=== PATIENT | female | born 1975 | race Caucasian/White ===

== ENCOUNTER 2016-07-17 15:04 | Emergency (ER) | payer BC ==
[2016-07-17] MEDS ORDERED: LORazepam 2 MG/ML MDV IVPUSH ONE (15:12)
[2016-07-17] MEDS ORDERED: Sodium Chloride 0.9% 10 ML Syringe FLUSH PRN (15:13)
[2016-07-17] MEDS ORDERED: Sodium Chloride 0.9% 2.5 ML Syringe FLUSH PRN (15:13)
--- NOTE | 2016-07-17 15:14 | EDM.PDOC ---
ED HISTORY OF PRESENT ILLNESS - General Stated Complaint: SHORTNESS OF BREATH Time Seen by Provider: 07/17/16 15:06 Source of Information: Reports: Patient History Limitations: Reports: No limitations - History of Present Illness INITIAL COMMENTS - FREE TEXT/NARRATIVE: History of present illness: [] Patient has a history of high blood pressure parameter men several weeks ago. She felt palpitations today and her took her blood pressure and found it to be in the 190s over 100s. She started panicking became very anxious and came to the ER for evaluation. Review of systems: As per history of present illness and below otherwise all systems reviewed and negative. Past medical history: As per history of present illness and as reviewed below otherwise noncontributory. Surgical history: As per history of present illness and as reviewed below otherwise noncontributory. Social history: No reported history of drug or alcohol abuse. Family history: As per history of present illness and as reviewed below otherwise noncontributory. Physical exam: General: Well developed, well nourished in NAD HEENT: Atraumatic, normocephalic, pupils reactive, negative for conjunctival pallor or scleral icterus, mucous membranes moist, throat clear, neck supple, nontender, trachea midline. Lungs: Clear to auscultation, breath sounds equal bilaterally, chest nontender. Heart: S1S2, regular, negative for clicks, rubs, or JVD. Abdomen: Soft, nondistended, nontender. Negative for masses or hepatosplenomegaly. Negative for costovertebral tenderness. Pelvis: Stable nontender. 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: Deferred. Rectal: Deferred. Extremities: Atraumatic, negative for cords or calf pain. Neurovascular unremarkable. Neuro: Awake, alert, oriented. Cranial nerves II through XII unremarkable. Cerebellum unremarkable. Motor and sensory unremarkable throughout. Exam nonfocal. Diagnostics: [] Labs are normal. Patient does have an elevated WBC count but looking at past CBCs this is her normal. Therapeutics: [] Nitroglycerin, metoprolol Zofran for vomiting which started while she was in ED. Impression: []Uncontrolled hypertension Plan: [] Renewed her losartan, she is followed with her primary care physician for her medications. Definitive disposition and diagnosis as appropriate pending reevaluation and review of above. - Related Data Allergies/ADRs: Allergies Allergy/AdvReac Type Severity Reaction Status Date / Time metoclopramide [From Reglan] Allergy aggitation Verified 07/17/16 15:17 Home Meds: Home Meds Omeprazole 40 mg PO ONETIME 05/16/16 [History] DULoxetine [Cymbalta] 2 tab PO DAILY 06/21/16 [History] Losartan/Hydrochlorothiazide [Losartan-HCTZ 50-12.5 MG] 1 each PO DAILY #15 tablet 06/21/16 [Rx] Past Medical History - Past Surgical History Female Surgical History: Reports: Hysterectomy Social & Family History - Family History Family Medical History: Noncontributory - Tobacco Use Smoking Status *Q: Current Every Day Smoker Years of Tobacco use: 20 Packs/Tins Daily: 0.5 - Caffeine Use Caffeine Use: Reports: Coffee, Energy drinks - Recreational Drug Use Recreational Drug Use: No ED ROS GENERAL - Review of Systems Review Of Systems: See Below (See history of present illness) ED EXAM, GENERAL - Physical Exam Exam: See Below (See history of present illness) Course - Vital Signs Last Recorded V/S: Last Vital Signs Temp 36.7 C 07/17/16 17:01 Pulse 88 07/17/16 17:01 Resp 16 07/17/16 17:01 BP 160/98 H 07/17/16 17:01 Pulse Ox 97 07/17/16 17:01 - Orders/Labs/Meds Orders: Active Orders 24 hr Category Date Time Status Peripheral IV Insertion Adult [OM.PC] Stat Oth 07/17/16 15:13 Ordered Labs: Laboratory Tests 07/17/16 07/17/16 07/17/16 Range/Units 15:19 15:19 15:19 WBC 20.94 H (4.0-11.0) K/uL RBC 5.41 (4.30-5.90) M/uL Hgb 14.5 (12.0-16.0) g/dL Hct 44.8 (36.0-46.0) % MCV 82.8 (80.0-98.0) fL MCH 26.8 L (27.0-32.0) pg MCHC 32.4 (31.0-37.0) g/dL RDW Std Deviation 45.3 (28.0-62.0) fl RDW Coeff of Migdalia 15 (11.0-15.0) % Plt Count 421 H (150-400) K/uL MPV 9.60 (7.40-12.00) fL Add Manual Diff YES Neutrophils % (Manual) 69 (48.0-80.0) % Band Neutrophils % 2 % Lymphocytes % (Manual) 24 (16.0-40.0) % Monocytes % (Manual) 5 (0.0-15.0) % Nucleated RBC % 0.0 /100WBC Absolute Seg Neuts 14.4 Band Neutrophils # 0.4 Lymphocytes # (Manual) 5.0 Monocytes # (Manual) 1.0 Nucleated RBCs # 0 K/uL Sodium 143 (136-146) mmol/L Potassium 3.3 L (3.5-5.1) mmol/L Chloride 103 (98-110) mmol/L Carbon Dioxide 21 (21-31) mmol/L BUN 12 (6.0-23.0) mg/dL Creatinine 1.0 (0.6-1.5) mg/dL Est Cr Clr Drug Dosing TNP Estimated GFR (MDRD) > 60.0 ml/min Glucose 95 (60-110) mg/dL Calcium 9.9 (8.8-10.8) mg/dL Total Bilirubin 0.8 (0.1-1.5) mg/dL AST 26 (5-40) IU/L ALT 33 (8-54) IU/L Alkaline Phosphatase 81 (40-150) Troponin I < 0.10 (0.0-0.29) NG/ML Total Protein 8.8 H (6.0-8.0) g/dL Albumin 4.9 (3.5-5.0) g/dL Globulin 3.9 H (2.0-3.5) g/dL Albumin/Globulin Ratio 1.3 (1.3-2.8) Meds: Medications Discontinued Medications Generic Name Dose Route Start Last Admin Trade Name Freq PRN Reason Stop Dose Admin Lorazepam 1 mg 07/17/16 15:12 07/17/16 15:24 Ativan IVPUSH 07/17/16 15:13 1 mg ONETIME ONE Administration Metoprolol Succinate 25 mg 07/17/16 15:57 Toprol Xl PO 07/17/16 15:58 ONETIME ONE Metoprolol Tartrate 5 mg 07/17/16 16:30 07/17/16 16:35 Lopressor IVPUSH 07/17/16 16:41 5 mg Q5M JOAN Administration Nitroglycerin 0.4 mg 07/17/16 15:12 07/17/16 15:36 Nitrostat SL 07/17/16 15:23 0.4 mg Q5M PRN Administration Chest Pain Ondansetron HCl 4 mg 07/17/16 16:10 07/17/16 16:16 Zofran IVPUSH 07/17/16 16:11 4 mg ONETIME ONE Administration Sodium Chloride 10 ml 07/17/16 15:13 07/17/16 15:24 Saline Flush FLUSH 10 ml ASDIRECTED PRN Administration Keep Vein Open Sodium Chloride 2.5 ml 07/17/16 15:13 07/17/16 15:24 Saline Flush FLUSH 2.5 ml ASDIRECTED PRN Administration Keep Vein Open Departure - Departure Time of Disposition: 16:04 Disposition: Home, Self-Care 01 Condition: good Clinical Impression: Uncontrolled hypertension Instructions: Hypertension Referrals: PCP,None [Primary Care Provider] - Forms: ED Department Discharge Additional Instructions: The following information is given to patients seen in the emergency department who are being discharged to home. This information is to outline your options for follow-up care. We provide all patients seen in our emergency department with a follow-up referral. The need for follow-up, as well as the timing and circumstances, are variable depending upon the specifics of your emergency department visit. If you don't have a primary care physician on staff, we will provide you with a referral. We always advise you to contact your personal physician following an emergency department visit to inform them of the circumstance of the visit and for follow-up with them and/or the need for any referrals to a consulting specialist. The emergency department will also refer you to a specialist when appropriate. This referral assures that you have the opportunity for follow-up care with a specialist. All of these measure are taken in an effort to provide you with optimal care, which includes your follow-up. Under all circumstances we always encourage you to contact your private physician who remains a resource for coordinating your care. When calling for follow-up care, please make the office aware that this follow-up is from your recent emergency room visit. If for any reason you are refused follow-up, please contact the [facility] Emergency Department at and asked to speak to the emergency department charge nurse. Take losartan as directed Followup PMD [facility] [address] [place] [id number] - My Orders Last 24 Hours: My Active Orders 07/17/16 15:13 Peripheral IV Insertion Adult [OM.PC] Stat - Assessment/Plan Last 24 Hours: My Active Orders 07/17/16 15:13 Peripheral IV Insertion Adult [OM.PC] Stat
[2016-07-17] MEDS: Nitroglycerin 0.4 MG Tab.SL SL PRN ×3 (15:24→15:36)
[2016-07-17 15:48] LABS: CHLORIDE,CL 103 mmol/L (98-110); SODIUM,NA 143 mmol/L (136-146)
[2016-07-17] MEDS ORDERED: Metoprolol Succinate 25 MG Tab.ER PO ONE (15:57)
[2016-07-17] MEDS ORDERED: Ondansetron 4 MG/2 ML SDV IVPUSH ONE (16:10)
[2016-07-17] MEDS ORDERED: Metoprolol Tartrate 5 MG/5 ML SDV IVPUSH SCH (16:30)
[2016-07-17 17:12] VITALS: BP 160/98
== END 2016-07-17 17:11 | disposition home or self-care (01) ==
LOC: MW.ED 15:04
DX: I10 Essential (primary) hypertension (principal); F17.210 Nicotine dependence, cigarettes, uncomplicated; Z90.49 Acquired absence of other specified parts of digestive tract; Z79.899 Other long term (current) drug therapy; Z88.8 Allergy status to other drugs, medicaments and biological substances
CPT/HCPCS: 36415; 80053; 84484; 85025; 93005; 96374; 96375; 99285; A9270; J2060; J2405; 99284

== ENCOUNTER 2017-07-16 14:24 | Emergency (ER) | payer BC ==
[2017-07-16 14:52] VITALS: BP 130/60
--- NOTE | 2017-07-16 16:49 | EDM.PDOC ---
ED HPI GENERAL MEDICAL PROBLEM - General Chief Complaint: Lower Extremity Injury/Pain Stated Complaint: RT KNEE HURTS Time Seen by Provider: 07/16/17 14:44 Source of Information: Reports: Patient History Limitations: Reports: No Limitations - History of Present Illness INITIAL COMMENTS - FREE TEXT/NARRATIVE: History of present illness: []Patient fell from a standing position 5 days ago and has had right knee pain underneath her patella. Patient has been ambulatory with pain. She has developed marked leg swelling with redness and pain. Patient denies any fevers, chest pain or shortness of breath and has no history of blood clots in the past. Review of systems: As per history of present illness and below otherwise all systems reviewed and negative. Past medical history: As per history of present illness and as reviewed below otherwise noncontributory. Surgical history: As per history of present illness and as reviewed below otherwise noncontributory. Social history: No reported history of drug or alcohol abuse. Family history: As per history of present illness and as reviewed below otherwise noncontributory. Physical exam: General: Well developed, well nourished in NAD HEENT: Atraumatic, normocephalic, pupils reactive, negative for conjunctival pallor or scleral icterus, mucous membranes moist, throat clear, neck supple, nontender, trachea midline. Lungs: Clear to auscultation, breath sounds equal bilaterally, chest nontender. Heart: S1S2, regular, negative for clicks, rubs, or JVD. Abdomen: Soft, nondistended, nontender. Negative for masses or hepatosplenomegaly. Negative for costovertebral tenderness. Pelvis: Stable nontender. 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: Deferred. Rectal: Deferred. Extremities: Right lower extremity no obvious knee effusion no external signs of trauma she is tender to palpation around the joint line her leg is markedly edematous and a erythematous compared to the left leg pulses are palpable, Neurovascular unremarkable. Neuro: Awake, alert, oriented. Cranial nerves II through XII unremarkable. Cerebellum unremarkable. Motor and sensory unremarkable throughout. Exam nonfocal. Diagnostics: []X-ray of her right knee shows small cortical tibial plateau lucency and suggestive of a fracture and ultrasound negative for DVT Therapeutics: []Knee immobilizer, patient declined pain meds in the ED Impression: []Right nondisplaced small tibial plateau fracture Plan: []Knee immobilizer, elevate leg as much as possible above the level of heart, ice to knee tramadol for pain follow-up with Dr. Lemon next available appointment Definitive disposition and diagnosis as appropriate pending reevaluation and review of above. right lower leg Pain Score (Numeric/FACES): 7 - Related Data Allergies Allergy/AdvReac Type Severity Reaction Status Date / Time metoclopramide [From Reglan] Allergy aggitation Verified 07/17/16 15:17 Home Meds: Home Meds Omeprazole 40 mg PO ONETIME 05/16/16 [History] DULoxetine [Cymbalta] 2 tab PO DAILY 06/21/16 [History] Losartan/Hydrochlorothiazide [Losartan-HCTZ 50-12.5 MG] 1 each PO DAILY #15 tablet 06/21/16 [Rx] traMADol HCl [Tramadol HCl] 50 mg PO Q6H PRN #16 tablet 07/16/17 [Rx] Past Medical History Cardiovascular History: Reports: Hypertension Gastrointestinal History: Reports: GERD Musculoskeletal History: Reports: Back Pain, Chronic Psychiatric History: Reports: Anxiety, Depression - Past Surgical History Cardiovascular Surgical History: Reports: None GI Surgical History: Reports: None Female Surgical History: Reports: Hysterectomy Social & Family History - Family History Family Medical History: Noncontributory - Tobacco Use Smoking Status *Q: Current Every Day Smoker Years of Tobacco use: 25 Packs/Tins Daily: 0.3 - Caffeine Use Caffeine Use: Reports: None Caffeine Use Comment: 2-3 drinks.day - Recreational Drug Use Recreational Drug Use: No Review of Systems - Review of Systems Review Of Systems: See Below (See history of present illness) ED EXAM, GENERAL - Physical Exam Exam: See Below (See history of present illness) Course - Vital Signs Last Recorded V/S: Last Vital Signs Temp 97.6 F 07/16/17 14:49 Pulse 100 07/16/17 14:49 Resp 16 07/16/17 14:49 BP 130/60 07/16/17 14:49 Pulse Ox 96 07/16/17 14:49 - Orders/Labs/Meds Orders: Active Orders 24 hr Category Date Time Status Knee 3V Rt [CR] Stat Exams 07/16/17 15:41 Taken Venous Doppler Lwr Ext Rt [US] Stat Exams 07/16/17 15:42 Taken Departure - Departure Time of Disposition: 16:49 Disposition: Home, Self-Care 01 Condition: Good Clinical Impression: Tibial plateau fracture, right Qualifiers: Encounter type: initial encounter Fracture type: closed Qualified Code(s): S82.141A - Displaced bicondylar fracture of right tibia, initial encounter for closed fracture - Discharge Information Prescriptions: traMADol HCl [Tramadol HCl] 50 mg PO Q6H PRN #16 tablet PRN Reason: Pain Referrals: Filemon Rios MD [Primary Care Provider] - Radha Lemon MD [Physician] - (Next available appointment) Forms: ED Department Discharge Additional Instructions: The following information is given to patients seen in the emergency department who are being discharged to home. This information is to outline your options for follow-up care. We provide all patients seen in our emergency department with a follow-up referral. The need for follow-up, as well as the timing and circumstances, are variable depending upon the specifics of your emergency department visit. If you don't have a primary care physician on staff, we will provide you with a referral. We always advise you to contact your personal physician following an emergency department visit to inform them of the circumstance of the visit and for follow-up with them and/or the need for any referrals to a consulting specialist. The emergency department will also refer you to a specialist when appropriate. This referral assures that you have the opportunity for follow-up care with a specialist. All of these measure are taken in an effort to provide you with optimal care, which includes your follow-up. Under all circumstances we always encourage you to contact your private physician who remains a resource for coordinating your care. When calling for follow-up care, please make the office aware that this follow-up is from your recent emergency room visit. If for any reason you are refused follow-up, please contact the [facility] Emergency Department at and asked to speak to the emergency department charge nurse. Ice, elevate above the level of your heart, Motrin for pain. Crutches for walking where immobilizer. Follow-up with Dr. Lemon next available appointment. - My Orders Last 24 Hours: My Active Orders 07/16/17 15:41 Knee 3V Rt [CR] Stat 07/16/17 15:42 Venous Doppler Lwr Ext Rt [US] Stat - Assessment/Plan Last 24 Hours: My Active Orders 07/16/17 15:41 Knee 3V Rt [CR] Stat 07/16/17 15:42 Venous Doppler Lwr Ext Rt [US] Stat
--- NOTE | 2017-07-17 16:05 | CR ---
EXAM DATE: 07/16/17 PATIENT'S AGE: 41 Patient: EASTON ARREGUIN Facility: [place], [place] Site . Site : 1975 Study: XRay Knee Right [id number]/11/2018 3:58:14 PM Ordering Physician: Walker Hanna Final Report: TECHNIQUE: Three views of the right knee. INDICATION: Fell 1 week ago. FINDINGS: Subtle cortical lucency in the lateral tibial plateau on the AP view may be a nondisplaced tibial plateau fracture. There is also a 1 year lucency in the patella seen on the patellar view. If indicated, CT could be performed for further evaluation of these findings. Dictated by Ari Varela MD @ Jul 16 2017 4:19PM (Electronic Signature) Report Signed by Proxy. MALCOM
--- NOTE | 2017-07-17 16:08 | US ---
EXAM DATE: 07/16/17 PATIENT'S AGE: 41 Patient: EASTON ARREGUIN Facility: [place], [place] Site . Site : 1975 Study: US Extremity Right [id number]/11/2018 4:21:46 PM Ordering Physician: Walker Hanna Final Report: INDICATION: Right calf swelling. TECHNIQUE: Ultrasound venous duplex lower right extremity. Compression venous exam was performed using norman-scale, color Doppler, and spectral Doppler imaging. COMPARISON: FINDINGS: Sonographic imaging demonstrates the right common femoral, deep femoral, superficial femoral, popliteal, posterior tibial and greater saphenous veins to be fully compressible with normal color Doppler blood flow. IMPRESSION: No DVT within the right lower extremity. Dictated by Nawaf Desai MD @ 07/16/2017 4:33:35 PM Dictated by: Nawaf Desai MD @ 07/16/2017 16:33:40 (Electronic Signature) Report Signed by Proxy. MALCOM
== END 2017-07-16 17:04 | disposition home or self-care (01) ==
LOC: MW.ED 14:24
DX: S82.144A Nondisplaced bicondylar fracture of right tibia, initial encounter for closed fracture (principal); K21.9 Gastro-esophageal reflux disease without esophagitis; I10 Essential (primary) hypertension; F32.9 Major depressive disorder, single episode, unspecified; F17.210 Nicotine dependence, cigarettes, uncomplicated; Z79.899 Other long term (current) drug therapy; Z88.8 Allergy status to other drugs, medicaments and biological substances; W19.XXXA Unspecified fall, initial encounter
CPT/HCPCS: 73562-26-RT; 73562-RT; 93971-26-RT; 93971-RT; 99283; 99284-25

== ENCOUNTER 2017-12-25 08:37 | Day surgery (SDC) | payer BC ==
[~2017-12-25 08:37] MED LIST: Lactated Ringers 1,000 ML IV SCH
[2017-12-25] MEDS ORDERED: Lidocaine 2% 5 ML SDV ONE (08:53)
[2017-12-25] MEDS ORDERED: Midazolam 1 MG/ML 2 ML SDV ONE (08:53)
[2017-12-25] MEDS ORDERED: Propofol 200 MG/20 ML SDV ONE ×3 (08:53→09:27)
--- NOTE | 2017-12-25 08:59 | PCM.PREANE ---
Preanesthetic Assessment - Procedure Proposed Procedure: EGD - Anesthesia/Transfusion/Family Hx Anesthesia History: Prior Anesthesia Without Reaction Family History of Anesthesia Reaction: No Transfusion History: Prior Transfusion Without Reaction Intubation History: Unknown - Review of Systems General: Other (Obesity) Pulmonary: Other (smoker) Cardiovascular: Other (HTN) Gastrointestinal: Nausea, Other (GERD) Neurological: No Symptoms Other: Reports: None - Physical Assessment NPO Status Date: 12/24/17 NPO Status Time: 22:00 Height: 4 ft 11 in Weight: 244 lb ASA Class: 3 Mental Status: Alert & Oriented x3 Airway Class: Mallampati = 2 Dentition: Reports: Broken Tooth/Teeth (chipped frontal uppers) Thyro-Mental Finger Breadths: 3 Mouth Opening Finger Breadths: 3 ROM/Head Extension: Limited/Partial Lungs: Clear to Auscultation Cardiovascular: Regular Rate, Regular Rhythm, No Murmurs Other: bilateral nares rings - Allergies Allergies/Adverse Reactions: Allergies Allergy/AdvReac Type Severity Reaction Status Date / Time metoclopramide [From Reglan] Allergy aggitation Verified 07/17/16 15:17 - Blood Blood Available: No Product(s) Available: None - Anesthesia Plan Pre-Op Medication Ordered: None - Acknowledgements Anesthesia Type Planned: MAC Pt an Appropriate Candidate for the Planned Anesthesia: Yes Alternatives and Risks of Anesthesia Discussed w Pt/Guardian: Yes Pt/Guardian Understands and Agrees with Anesthesia Plan: Yes PreAnesthesia Questionnaire HEENT History: Reports: Other (See Below) Other HEENT History: wears glasses Cardiovascular History: Reports: Hypertension Gastrointestinal History: Reports: GERD, Other (See Below) Other Gastrointestinal History: hx diverticulitis 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 History: Reports: None 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 History: Musculoskeletal History: Reports: Fracture Neurological History: Reports: None Psychiatric History: Reports: Anxiety, Depression Endocrine/Metabolic History: Reports: Obesity/BMI 30+ Hematologic History: Reports: Blood Transfusion(s) Immunologic History: Reports: None Oncologic (Cancer) History: Reports: None Dermatologic History: Reports: None - Past Surgical History Head Surgeries/Procedures: Reports: None GI Surgical History: Reports: Colonoscopy, EGD Female Surgical History: Reports: Hysterectomy - SUBSTANCE USE Smoking Status *Q: Light Tobacco Smoker Tobacco Use Within Last Twelve Months: Cigarettes Recreational Drug Use History: No - HOME MEDS Home Medications: Home Meds Omeprazole 40 mg PO DAILY 05/16/16 [History] DULoxetine [Cymbalta] 60 mg PO DAILY 06/21/16 [History] Cholecalciferol (Vitamin D3) [Vitamin D3] 1,000 units PO DAILY 12/20/17 [History ] Cyanocobalamin (Vitamin B12) [Vitamin B12] 500 mcg PO DAILY 12/20/17 [History] Losartan/Hydrochlorothiazide [Losartan-HCTZ 100-12.5 MG] 1 tab PO DAILY [History] Multivitamin [Multivitamins] 1 tab PO DAILY 12/20/17 [History] Phentermine HCl 37.5 mg PO DAILY 12/20/17 [History] Vitamin E 400 units PO DAILY 12/20/17 [History] Zolpidem Tartrate 5 mg PO BEDTIME 12/20/17 [History] buPROPion HCl [Wellbutrin Xl] 300 mg PO DAILY 12/20/17 [History] - CURRENT (IN HOUSE) MEDS Current Meds: Current Medications Lactated Ringer's (Ringers, Lactated) 1,000 mls @ 125 mls/hr IV ASDIRECTED JOAN Discontinued Medications Lidocaine (Xylocaine-Mpf 2%) Confirm Administered Dose 10 ml .ROUTE .STK-MED ONE Stop: 12/25/17 08:54 Midazolam HCl (Versed 1 Mg/Ml) Confirm Administered Dose 2 mg .ROUTE .STK-MED ONE Stop: 12/25/17 08:54 Propofol (Diprivan 20 Ml) Confirm Administered Dose 400 mg .ROUTE .STK-MED ONE Stop: 12/25/17 08:54
[2017-12-25] MEDS ORDERED: Sodium Chloride 0.9% 10 ML Syringe FLUSH PRN (09:39)
[2017-12-25] MEDS ORDERED: Ondansetron 4 MG/2 ML SDV IVPUSH PRN (09:39)
[2017-12-25] MEDS ORDERED: Sodium Chloride 0.9% 2.5 ML Syringe FLUSH PRN (09:39)
--- NOTE | 2017-12-25 09:42 | PCM.OPNOTE ---
- General Post-Op/Procedure Note Date of Surgery/Procedure: 12/25/17 Operative Procedure(s): Esophagogastroduodenoscopy with biopsy Pre Op Diagnosis: Abdominal pain with heartburn. Post-Op Diagnosis: Duodenal diverticulum. Moderate acute and chronic gastritis. Hiatal hernia. Anesthesia Technique: MAC (ASA III) Primary Surgeon: Quincy Lindsay Student Teacher: Lizandro Coombs Condition: Good Free Text/Narrative:: DICTATION [id number] CPT CODE 89553
--- NOTE | 2017-12-25 10:03 | PCM.POSTAN ---
POST ANESTHESIA ASSESSMENT - MENTAL STATUS Mental Status: Alert, Oriented - RESPIRATORY Respiratory Status: Respiratory Rate WNL, Airway Patent, O2 Saturation Stable - CARDIOVASCULAR CV Status: Pulse Rate WNL, Blood Pressure Stable - GASTROINTESTINAL GI Status: No Symptoms - POST OP HYDRATION Hydration Status: Adequate & Stable
[2017-12-25 10:17] VITALS: BP 98/54
--- NOTE | 2017-12-25 10:45 | PCM48HPAN ---
Post Anesthesia Note - EVALUATION WITHIN 48HRS OF ANESTHETIC Vital Signs in Normal Range: Yes Patient Participated in Evaluation: Yes Respiratory Function Stable: Yes Airway Patent: Yes Cardiovascular Function Stable: Yes Hydration Status Stable: Yes Pain Control Satisfactory: Yes Nausea and Vomiting Control Satisfactory: Yes Mental Status Recovered: Yes Resp Rate: 12
--- NOTE | 2017-12-25 12:54 | OR ---
SURGEON: Quincy Lindsay M.D. DATE OF PROCEDURE: 12/25/2017 OPERATION PERFORMED: Esophagogastroduodenoscopy with biopsy. PAPER FEEDER: Dr. Omalley. ANESTHESIA: MAC. ASA CLASSIFICATION: III. PREOPERATIVE DIAGNOSIS: Progressive abdominal pain with heartburn. POSTOPERATIVE DIAGNOSES: 1. Moderate acute and chronic gastritis. 2. Duodenal diverticulum. 3. Hiatal hernia. DESCRIPTION OF PROCEDURE: The patient was taken to the endoscopy room and positioned on the endoscopy table in the supine position. Time-out was called for appropriate identification of patient and procedure. Monitored anesthesia care was provided. The bite block was placed between the patient's teeth. The gastroscope was inserted through the bite block into the mouth and advanced with minimal difficulty through the esophagus and stomach into the duodenum. The duodenal diverticulum could be identified and photographs were obtained. The distal stomach does show [id number] gastritis. Antral biopsies were obtained to look for the presence of Helicobacter pylori. The gastroscope was retroflexed to visualize the proximal stomach. No mid or proximal lesions were identified. The gastroscope was then straightened and slowly withdrawn. Hiatal hernia had been noted in a retroflexed position, was again noted in a forward viewing fashion. The esophagus demonstrated good contractility. No mid or proximal lesions were identified. The vocal cords were visualized as the scope was withdrawn and noted to move symmetrically. The gastroscope was then removed with the patient having tolerated the procedure well. She was taken to recovery room in stable condition. JJ / JACIEL /[id number]
== END 2017-12-25 10:45 | disposition home or self-care (01) ==
LOC: MW.SDS 08:37
PROVIDERS: ATTEND Surgery
DX: K29.50 Unspecified chronic gastritis without bleeding (principal); K44.9 Diaphragmatic hernia without obstruction or gangrene; K57.10 Diverticulosis of small intestine without perforation or abscess without bleeding; J30.9 Allergic rhinitis, unspecified; K21.9 Gastro-esophageal reflux disease without esophagitis; I10 Essential (primary) hypertension; G47.00 Insomnia, unspecified; E66.01 Morbid (severe) obesity due to excess calories; Z68.42 Body mass index [BMI] 45.0-49.9, adult; F17.210 Nicotine dependence, cigarettes, uncomplicated; F41.9 Anxiety disorder, unspecified; F32.9 Major depressive disorder, single episode, unspecified; Z79.899 Other long term (current) drug therapy
CPT/HCPCS: 43239; 88305; 88312; J2250; J2704; J7120; 00731

== ENCOUNTER 2018-06-01 18:15 | Emergency (ER) | payer BC ==
[2018-06-01] MEDS ORDERED: Ketorolac 30 MG/ML SDV IVPUSH ONE (18:24)
[2018-06-01] MEDS ORDERED: Sodium Chloride 0.9% 1,000 ML IV ONE (18:24)
[2018-06-01 18:25] VITALS: BP 136/87
--- NOTE | 2018-06-01 18:35 | EDM.PDOC ---
ED HPI GENERAL MEDICAL PROBLEM - General Chief Complaint: Abdominal Pain Stated Complaint: CHEST PAIN Time Seen by Provider: 06/01/18 18:20 Source of Information: Reports: Patient History Limitations: Reports: No Limitations - History of Present Illness INITIAL COMMENTS - FREE TEXT/NARRATIVE: HISTORY AND PHYSICAL: History of present illness: Patient is a 42-year-old female who comes to the emergency room with complaints of epigastric and right upper quadrant pain. She states she has a history of gallstones and reportedly was scheduled to have her gallbladder removed but due to family illness had to cancel. She states she has had this epigastric pain over the past 3-4 days. Today the pain was so severe she called ambulance for assistance. She has had nausea with a few episodes of vomiting. Has had loose stools described as "mucousy", but no blood in her stools. EMS did give her Zofran and fentanyl in route. She denies any fever, chills, chest pain, shortness of breath or cough. Denies any constipation or dysuria. Review of systems: As per history of present illness and below otherwise all systems reviewed and negative. Past medical history: As per history of present illness and as reviewed below otherwise noncontributory. Surgical history: As per history of present illness and as reviewed below otherwise noncontributory. Social history: See social history for further information Family history: As per history of present illness and as reviewed below otherwise noncontributory. Physical exam: General: Well-developed and well-nourished 42-year-old female. Alert and oriented. Nontoxic appearing and in no acute distress. HEENT: Atraumatic, normocephalic, pupils equal and reactive bilaterally, negative for conjunctival pallor or scleral icterus, mucous membranes moist, TMs normal bilaterally, throat clear, neck supple, nontender, trachea midline. No drooling or trismus noted. No meningeal signs. No hot potato voice noted. Lungs: Clear to auscultation, breath sounds equal bilaterally, chest nontender. Heart: S1S2, regular rate and rhythm without overt murmur Abdomen: Soft, obese, epigastric tenderness and right upper quadrant tenderness which she states does radiate into her right flank mid back area Negative for masses or hepatosplenomegaly. Negative for costovertebral tenderness. Pelvis: Stable nontender. 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: Deferred. Rectal: Deferred. Skin: Intact, warm, dry. No lesions or rashes noted. Extremities: Atraumatic, moves all extremities per self, negative for cords or calf pain. Neurovascular unremarkable. Neuro: Awake, alert, oriented. Cranial nerves II through XII unremarkable. Cerebellum unremarkable. Motor and sensory unremarkable throughout. Exam nonfocal. Notes: EKG shows normal sinus rhythm with a rate of 87, no acute findings. Vital signs are stable. Patient signed out AGAINST MEDICAL ADVICE stating that she needed to return home to take care of her mother. She is aware of the risks of leaving without knowing the results on her ultrasound report. Vital signs are stable. She was encouraged to return if symptoms worsen or new symptoms develop. Diagnostics: CBC, CMP, UA, amylase, lipase, h.pylori, abdominal ultrasound Therapeutics: IV fluid, Toradol Prescription: None Impression: AGAINST MEDICAL ADVICE Abdominal Pain Plan: Patient left AGAINST MEDICAL ADVICE Definitive disposition and diagnosis as appropriate pending reevaluation and review of above. Duration: Day(s): Location: Reports: Abdomen Upper Mid-Anterior Abdominal Pain Score (Numeric/FACES): 8 - Related Data Allergies Allergy/AdvReac Type Severity Reaction Status Date / Time metoclopramide [From Reglan] Allergy aggitation Verified 06/01/18 18:21 Home Meds: Home Meds Omeprazole 40 mg PO DAILY 05/16/16 [History] DULoxetine [Cymbalta] 60 mg PO DAILY 06/21/16 [History] Cholecalciferol (Vitamin D3) [Vitamin D3] 1,000 units PO DAILY 12/20/17 [History ] Cyanocobalamin (Vitamin B12) [Vitamin B12] 500 mcg PO DAILY 12/20/17 [History] Losartan/Hydrochlorothiazide [Losartan-HCTZ 100-12.5 MG] 1 tab PO DAILY [History] Multivitamin [Multivitamins] 1 tab PO DAILY 12/20/17 [History] Vitamin E 400 units PO DAILY 12/20/17 [History] buPROPion HCl [Wellbutrin Xl] 300 mg PO DAILY 12/20/17 [History] Ciprofloxacin HCl [Cipro] 500 mg PO BID 4 Days #8 tablet 03/02/18 [Rx] Ondansetron [Zofran ODT] 4 mg PO Q6H PRN #8 tab.dis 03/17/18 [Rx] Past Medical History HEENT History: Reports: Other (See Below) Other HEENT History: wears glasses Cardiovascular History: Reports: Hypertension Respiratory History: Reports: None Gastrointestinal History: Reports: GERD, Other (See Below) Other Gastrointestinal History: hx diverticulitis 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: Musculoskeletal History: Reports: Fracture Neurological History: Reports: None Psychiatric History: Reports: Anxiety, Depression Endocrine/Metabolic History: Reports: Obesity/BMI 30+ Hematologic History: Reports: Blood Transfusion(s) Immunologic History: Reports: None Oncologic (Cancer) History: Reports: None Dermatologic History: Reports: None Other Dermatologic History: acne - Infectious Disease History Infectious Disease History: Reports: None - Past Surgical History Head Surgeries/Procedures: Reports: None Cardiovascular Surgical History: Reports: None GI Surgical History: Reports: Colonoscopy, EGD Female Surgical History: Reports: Hysterectomy Musculoskeletal Surgical History: Reports: None Social & Family History - Family History Family Medical History: Noncontributory - Tobacco Use Smoking Status *Q: Current Every Day Smoker Years of Tobacco use: 20 Packs/Tins Daily: 0.1 - Caffeine Use Caffeine Use: Reports: Coffee Caffeine Use Comment: 2-3 drinks.day - Recreational Drug Use Recreational Drug Use: No ED ROS GENERAL - Review of Systems Review Of Systems: ROS reveals no pertinent complaints other than HPI. ED EXAM, GI/ABD - Physical Exam Exam: See Below (See dictation) Course - Vital Signs Last Recorded V/S: Last Vital Signs Temp 98.7 F 06/01/18 18:17 Pulse 99 06/01/18 18:17 Resp 16 06/01/18 18:17 BP 136/87 06/01/18 18:17 Pulse Ox 99 06/01/18 18:17 - Orders/Labs/Meds Orders: Active Orders 24 hr Category Date Time Status EKG Documentation Completion [RC] STAT Care 06/01/18 18:24 Active UA RFX ARNEL AND CULT IF INDIC [URIN] Stat Lab 06/01/18 18:24 Ordered Labs: Laboratory Tests 06/01/18 06/01/18 06/01/18 Range/Units 18:33 18:33 18:33 WBC 13.71 H (4.0-11.0) K/uL RBC 4.75 (4.30-5.90) M/uL Hgb 13.5 (12.0-16.0) g/dL Hct 40.7 (36.0-46.0) % MCV 85.7 (80.0-98.0) fL MCH 28.4 (27.0-32.0) pg MCHC 33.2 (31.0-37.0) g/dL RDW Std Deviation 45.2 (28.0-62.0) fl RDW Coeff of Migdalia 15 (11.0-15.0) % Plt Count 312 (150-400) K/uL MPV 9.40 (7.40-12.00) fL Neut % (Auto) 77.7 (48.0-80.0) % Lymph % (Auto) 18.1 (16.0-40.0) % [place] % (Auto) 3.4 (0.0-15.0) % Eos % (Auto) 0.6 (0.0-7.0) % Baso % (Auto) 0.2 (0.0-1.5) % Neut # (Auto) 10.7 H (1.4-5.7) K/uL Lymph # (Auto) 2.5 H (0.6-2.4) K/uL [place] # (Auto) 0.5 (0.0-0.8) K/uL Eos # (Auto) 0.1 (0.0-0.7) K/uL Baso # (Auto) 0.0 (0.0-0.1) K/uL Nucleated RBC % 0.0 /100WBC Nucleated RBCs # 0 K/uL Sodium 141 (136-145) mmol/L Potassium 3.6 (3.5-5.1) mmol/L Chloride 100 (98-107) mmol/L Carbon Dioxide 29.1 (21.0-32.0) mmol/L BUN 10 (7.0-18.0) mg/dL Creatinine 1.0 (0.6-1.0) mg/dL Est Cr Clr Drug Dosing 53.18 mL/min Estimated GFR (MDRD) > 60.0 ml/min Glucose 111 H (74-106) mg/dL Calcium 10.2 H (8.5-10.1) mg/dL Total Bilirubin 0.4 (0.2-1.0) mg/dL AST 17 (15-37) IU/L ALT 27 (14-63) IU/L Alkaline Phosphatase 88 (46-116) U/L Troponin I < 0.050 (0.000-0.056) ng/mL Total Protein 8.3 H (6.4-8.2) g/dL Albumin 3.9 (3.4-5.0) g/dL Globulin 4.4 H (2.6-4.0) g/dL Albumin/Globulin Ratio 0.9 (0.9-1.6) Amylase 141 H (25-115) U/L Lipase 171 (73-393) U/L H. pylori IgG Antibody NEGATIVE (NEG) Meds: Medications Discontinued Medications Generic Name Dose Route Start Last Admin Trade Name Freq PRN Reason Stop Dose Admin Sodium Chloride 1,000 mls @ 999 mls/hr 06/01/18 18:24 06/01/18 18:33 Normal Saline IV 06/01/18 19:24 999 mls/hr STAT ONE Administration Ketorolac Tromethamine 30 mg 06/01/18 18:24 06/01/18 18:32 Toradol IVPUSH 06/01/18 18:25 30 mg ONETIME ONE Administration Departure - Departure Time of Disposition: 20:59 Disposition: Against Medical Advice 07 Clinical Impression: Left against medical advice Abdominal pain Qualifiers: Abdominal location: left upper quadrant Qualified Code(s): R10.12 - Left upper quadrant pain - Discharge Information Referrals: Filemon Rios MD [Primary Care Provider] - Forms: ED Department Discharge - My Orders Last 24 Hours: My Active Orders 06/01/18 18:24 EKG Documentation Completion [RC] STAT UA RFX ARNEL AND CULT IF INDIC [URIN] Stat - Assessment/Plan Last 24 Hours: My Active Orders 06/01/18 18:24 EKG Documentation Completion [RC] STAT UA RFX ARNEL AND CULT IF INDIC [URIN] Stat
[2018-06-01 19:05] LABS: CHLORIDE,CL 100 mmol/L (98-107); SODIUM,NA 141 mmol/L (136-145)
--- NOTE | 2018-06-01 20:30 | US ---
INDICATION: RUQ PAIN LIMITED ABDOMEN ULTRASOUND Technique: Multiple sonographic images were performed over the right upper quadrant. Comparison: 02/27/2018 ultrasound. Findings: The gallbladder appears partially contracted. The gallbladder contains several shadowing echogenic foci consistent with gallstones. There was a positive sonographic Boswell`s sign according to the technologist. The gallbladder wall does not appear abnormally thickened and no pericholecystic fluid is seen. No intrahepatic biliary dilatation is seen but the common bile duct is mildly dilated, measuring 9-10 millimeters in diameter. No intraductal stones are identified. The visualized portions of the liver, pancreas, and right kidney are unremarkable except for diffusely increased liver echogenicity consistent with fatty infiltration. IMPRESSION: 1. Cholelithiasis. Positive sonographic Boswell`s sign without other sonographic evidence of cholecystitis. 2. Dilated common bile duct measuring 9-10 millimeters in diameter. 3. Fatty infiltration of the liver. DARLYN RONDON MD [facility] Dictated by Kyaw Rondon MD @ 06/01/2018 8:26:39 PM Dictated by: Kyaw Rondon MD @ 06/01/2018 20:29:34 (Electronically Signed)
== END 2018-06-01 20:10 | disposition left against medical advice (07) ==
LOC: MW.ED 18:15
DX: R10.12 Left upper quadrant pain (principal); R10.13 Epigastric pain; R10.11 Right upper quadrant pain; I10 Essential (primary) hypertension; K21.9 Gastro-esophageal reflux disease without esophagitis; F41.9 Anxiety disorder, unspecified; F32.9 Major depressive disorder, single episode, unspecified; F17.210 Nicotine dependence, cigarettes, uncomplicated; Z79.899 Other long term (current) drug therapy; Z53.21 Procedure and treatment not carried out due to patient leaving prior to being seen by health care provider
CPT/HCPCS: 36415; 76705; 80053; 82150; 83690; 84484; 85025; 86677; 93005; 96361; 96374; 99285; J1885; J7040

== ENCOUNTER 2018-06-04 22:25 | Emergency (ER) | payer BC ==
[2018-06-04] MEDS ORDERED: Ondansetron 4 MG/2 ML SDV IVPUSH ONE (22:33)
--- NOTE | 2018-06-04 22:41 | EDM.PDOC ---
ED HPI GENERAL MEDICAL PROBLEM - General Chief Complaint: Chest Pain Stated Complaint: CHEST IS HURTING Time Seen by Provider: 06/04/18 22:35 - History of Present Illness INITIAL COMMENTS - FREE TEXT/NARRATIVE: HISTORY AND PHYSICAL: History of present illness: Patient is a 42-year-old white female history of alcohol abuse who presents with a concern of epigastric discomfort after drinking tonight she states she did some shots of vodka. There's been no shortness of breath and no other complaints she does have a history of gallbladder disease and is in a process of securing follow-up for further evaluation and possible cholecystectomy in the future. Review of systems: As per history of present illness and below otherwise all systems reviewed and negative. Past medical history: As per history of present illness and as reviewed below otherwise noncontributory. Surgical history: As per history of present illness and as reviewed below otherwise noncontributory. Social history: No reported history of drug or alcohol abuse. Family history: As per history of present illness and as reviewed below otherwise noncontributory. Physical exam: HEENT: Atraumatic, normocephalic, pupils reactive, negative for conjunctival pallor or scleral icterus, mucous membranes moist, throat clear, neck supple, nontender, trachea midline. Lungs: Clear to auscultation, breath sounds equal bilaterally, chest nontender. Heart: S1S2, regular, negative for clicks, rubs, or JVD. Abdomen: Soft, nondistended, nontender. Negative for masses or hepatosplenomegaly. Negative for costovertebral tenderness. Pelvis: Stable nontender. 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: Deferred. Rectal: Deferred. Extremities: Atraumatic, negative for cords or calf pain. Neurovascular unremarkable. Neuro: Awake, alert, oriented. Cranial nerves II through XII unremarkable. Cerebellum unremarkable. Motor and sensory unremarkable throughout. Exam nonfocal. Diagnostics: CBC CMP and lipase troponin PT/INR chest x-ray EKG Therapeutics: IV O2 monitor Zofran 4 mg IV Impression: #1 epigastric abdominal pain #2 history of alcohol abuse #3 gastritis #4 history of biliary disease Definitive disposition and diagnosis as appropriate pending reevaluation and review of above. - Related Data Allergies Allergy/AdvReac Type Severity Reaction Status Date / Time metoclopramide [From Reglan] Allergy Agitation Verified 06/04/18 22:48 Home Meds: Home Meds Omeprazole 60 mg PO DAILY 05/16/16 [History] DULoxetine [Cymbalta] 60 mg PO DAILY 06/21/16 [History] Losartan/Hydrochlorothiazide [Losartan-HCTZ 100-12.5 MG] 1 tab PO DAILY [History] buPROPion HCl [Wellbutrin Xl] 300 mg PO DAILY 12/20/17 [History] Past Medical History HEENT History: Reports: Other (See Below) Other HEENT History: wears glasses Cardiovascular History: Reports: Hypertension Respiratory History: Reports: None Gastrointestinal History: Reports: GERD, Other (See Below) Other Gastrointestinal History: hx diverticulitis 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: Musculoskeletal History: Reports: Fracture Neurological History: Reports: None Psychiatric History: Reports: Anxiety, Depression Endocrine/Metabolic History: Reports: Obesity/BMI 30+ Hematologic History: Reports: Blood Transfusion(s) Immunologic History: Reports: None Oncologic (Cancer) History: Reports: None Dermatologic History: Reports: None Other Dermatologic History: acne - Infectious Disease History Infectious Disease History: Reports: None - Past Surgical History Head Surgeries/Procedures: Reports: None Cardiovascular Surgical History: Reports: None GI Surgical History: Reports: Colonoscopy, EGD Female Surgical History: Reports: Hysterectomy Musculoskeletal Surgical History: Reports: None Social & Family History - Family History Family Medical History: Noncontributory - Caffeine Use Caffeine Use: Reports: Coffee Caffeine Use Comment: 2-3 drinks.day ED ROS GENERAL - Review of Systems Review Of Systems: ROS reveals no pertinent complaints other than HPI. ED EXAM, GENERAL - Physical Exam Exam: See Below (See dictation) Course - Vital Signs Last Recorded V/S: Last Vital Signs Temp 36.1 C 06/04/18 22:25 Pulse 91 06/04/18 22:25 Resp 18 06/04/18 22:25 BP 164/91 H 06/04/18 22:25 Pulse Ox 95 06/04/18 22:25 - Orders/Labs/Meds Orders: Active Orders 24 hr Category Date Time Status EKG Documentation Completion [RC] STAT Care 06/04/18 22:33 Active UA RFX ARNEL AND CULT IF INDIC [URIN] Stat Lab 06/04/18 23:23 Ordered Sodium Chloride 0.9% [Saline Flush] Med 06/04/18 22:51 Active 10 ml FLUSH ASDIRECTED PRN Sodium Chloride 0.9% [Saline Flush] Med 06/04/18 22:51 Active 2.5 ml FLUSH ASDIRECTED PRN Nasogastric Orogastric Tube Insertion [OM.PC] Stat Oth 06/05/18 00:32 Ordered Saline Lock Insert [OM.PC] Stat Ot 06/04/18 22:51 Ordered Medication Orders Sodium Chloride (Saline Flush) 10 ml FLUSH ASDIRECTED PRN PRN Reason: Keep Vein Open Sodium Chloride (Saline Flush) 2.5 ml FLUSH ASDIRECTED PRN PRN Reason: Keep Vein Open Labs: Laboratory Tests 06/04/18 06/04/18 06/04/18 Range/Units 22:45 22:45 22:45 WBC 15.92 H (4.0-11.0) K/uL RBC 4.74 (4.30-5.90) M/uL Hgb 13.1 (12.0-16.0) g/dL Hct 40.4 (36.0-46.0) % MCV 85.2 (80.0-98.0) fL MCH 27.6 (27.0-32.0) pg MCHC 32.4 (31.0-37.0) g/dL RDW Std Deviation 44.6 (28.0-62.0) fl RDW Coeff of Migdalia 14 (11.0-15.0) % Plt Count 345 (150-400) K/uL MPV 9.50 (7.40-12.00) fL Add Manual Diff YES Neutrophils % (Manual) 68 (48.0-80.0) % Band Neutrophils % 3 % Lymphocytes % (Manual) 24 (16.0-40.0) % Monocytes % (Manual) 4 (0.0-15.0) % Eosinophils % (Manual) 1 (0.0-7.0) % Nucleated RBC % 0.0 /100WBC Absolute Seg Neuts 10.8 H (1.4-5.7) Band Neutrophils # 0.5 Lymphocytes # (Manual) 3.8 H (0.6-2.4) Monocytes # (Manual) 0.6 (0.0-0.8) Eosinophils # (Manual) 0.2 (0.0-0.7) Nucleated RBCs # 0 K/uL INR 0.99 Sodium 143 (136-145) mmol/L Potassium 3.3 L (3.5-5.1) mmol/L Chloride 101 (98-107) mmol/L Carbon Dioxide 27.8 (21.0-32.0) mmol/L BUN 11 (7.0-18.0) mg/dL Creatinine 1.0 (0.6-1.0) mg/dL Est Cr Clr Drug Dosing TNP Estimated GFR (MDRD) > 60.0 ml/min Glucose 118 H (74-106) mg/dL Calcium 10.1 (8.5-10.1) mg/dL Total Bilirubin 0.3 (0.2-1.0) mg/dL AST 14 L (15-37) IU/L ALT 26 (14-63) IU/L Alkaline Phosphatase 78 (46-116) U/L Troponin I < 0.050 (0.000-0.056) ng/mL Total Protein 7.9 (6.4-8.2) g/dL Albumin 3.8 (3.4-5.0) g/dL Globulin 4.1 H (2.6-4.0) g/dL Albumin/Globulin Ratio 0.9 (0.9-1.6) Lipase 164 (73-393) U/L Meds: Medications Generic Name Dose Route Start Last Admin Trade Name Harjeetq PRN Reason Stop Dose Admin Sodium Chloride 10 ml 06/04/18 22:51 Saline Flush FLUSH ASDIRECTED PRN Keep Vein Open Sodium Chloride 2.5 ml 06/04/18 22:51 Saline Flush FLUSH ASDIRECTED PRN Keep Vein Open Discontinued Medications Generic Name Dose Route Start Last Admin Trade Name Alexandrea PRN Reason Stop Dose Admin Benzocaine 1 each 06/05/18 00:17 06/05/18 00:30 Hurricaine One 20% MUCMEM 06/05/18 00:18 1 each ONETIME ONE Administration Al Hydroxide/Mg Hydroxide 15 0 ml 06/04/18 22:50 06/04/18 23:00 ml/ Lidocaine HCl 5 ml PO 06/04/18 22:51 20 each ONETIME ONE Administration Ondansetron HCl 4 mg 06/04/18 22:33 06/04/18 22:41 Zofran IVPUSH 06/04/18 22:34 4 mg ONETIME ONE Administration Pantoprazole Sodium 40 mg 06/04/18 22:50 06/04/18 23:01 Protonix Iv IVPUSH 06/04/18 22:51 40 mg NOW ONE Administration Departure - Departure Time of Disposition: 00:55 Disposition: Home, Self-Care 01 Condition: Good Clinical Impression: Cholelithiasis, Gastritis, Alcohol abuse - Discharge Information Instructions: Cholelithiasis, [id number] Referrals: Filemon Rios MD [Primary Care Provider] - Forms: ED Department Discharge Additional Instructions: The following information is given to patients seen in the emergency department who are being discharged to home. This information is to outline your options for follow-up care. We provide all patients seen in our emergency department with a follow-up referral. The need for follow-up, as well as the timing and circumstances, are variable depending upon the specifics of your emergency department visit. If you don't have a primary care physician on staff, we will provide you with a referral. We always advise you to contact your personal physician following an emergency department visit to inform them of the circumstance of the visit and for follow-up with them and/or the need for any referrals to a consulting specialist. The emergency department will also refer you to a specialist when appropriate. This referral assures that you have the opportunity for followup care with a specialist. All of these measure are taken in an effort to provide you with optimal care, which includes your followup. Under all circumstances we always encourage you to contact your private physician who remains a resource for coordinating your care. When calling for followup care, please make the office aware that this follow-up is from your recent emergency room visit. If for any reason you are refused follow-up, please contact the [facility] emergency department at and asked to speak to the emergency department charge nurse. Protonix as prescribed follow-up Gen. surgery as discussed stop drinking and return as needed as discussed[] - My Orders Last 24 Hours: My Active Orders 06/04/18 22:33 EKG Documentation Completion [RC] STAT 06/04/18 22:51 Sodium Chloride 0.9% [Saline Flush] 10 ml FLUSH ASDIRECTED PRN Sodium Chloride 0.9% [Saline Flush] 2.5 ml FLUSH ASDIRECTED PRN Saline Lock Insert [OM.PC] Stat 06/04/18 23:23 UA RFX ARNEL AND CULT IF INDIC [URIN] Stat 06/05/18 00:32 Nasogastric Orogastric Tube Insertion [OM.PC] Stat - Assessment/Plan Last 24 Hours: My Active Orders 06/04/18 22:33 EKG Documentation Completion [RC] STAT 06/04/18 22:51 Sodium Chloride 0.9% [Saline Flush] 10 ml FLUSH ASDIRECTED PRN Sodium Chloride 0.9% [Saline Flush] 2.5 ml FLUSH ASDIRECTED PRN Saline Lock Insert [OM.PC] Stat 06/04/18 23:23 UA RFX ARNEL AND CULT IF INDIC [URIN] Stat 06/05/18 00:32 Nasogastric Orogastric Tube Insertion [OM.PC] Stat
[2018-06-04] MEDS ORDERED: Pantoprazole 40 MG Vial IVPUSH ONE (22:50)
[2018-06-04] MEDS ORDERED: Alum Hydrox/Mag Hydrox/Simeth 15 ML, Lidocaine 2% 5 ML PO ONE ×2 (22:50)
[2018-06-04] MEDS ORDERED: Sodium Chloride 0.9% 2.5 ML Syringe FLUSH PRN (22:51)
[2018-06-04] MEDS ORDERED: Sodium Chloride 0.9% 10 ML Syringe FLUSH PRN (22:51)
--- NOTE | 2018-06-04 23:10 | CR ---
Indication: Chest pain. Vomiting Technique: Chest 1 view Comparison: 03/17/2018. Findings/Impression: Cardiovascular and mediastinum: Mildly decreased cardiac size compared to the prior. Lungs and pleural space: Lungs are clear. No sign of infiltrate or mass. No sign of pleural effusion. No definite pneumothorax seen. Bones and soft tissues: No significant change. Dictated by Rajat Taylor MD @ 06/04/2018 11:08:34 PM Dictated by: Rajat Taylor MD @ 06/04/2018 23:08:38 (Electronically Signed)
[2018-06-04 23:34] LABS: CHLORIDE,CL 101 mmol/L (98-107); SODIUM,NA 143 mmol/L (136-145)
[2018-06-05] MEDS ORDERED: Benzocaine 20% Topical Spray UD MUCMEM ONE (00:17)
--- NOTE | 2018-06-05 00:38 | US ---
INDICATION: Right upper quadrant abdomen pain TECHNIQUE: Ultrasound abdomen limited. Sonographic images of the right upper quadrant were obtained using norman-scale and color Doppler images. COMPARISON: Right upper quadrant ultrasound 06/01/2018 FINDINGS: Liver: Mildly increased echogenicity diffusely without focal lesion. No masses. No intrahepatic biliary dilatation. Gallbladder: Cholelithiasis filling the gallbladder lumen with contracted gallbladder. Borderline gallbladder wall thickness at 3 millimeters. Common bile duct: 3 mm. Pancreas: Partially obscured by bowel gas without discrete lesion. Right kidney: Normal in size. Normal echotexture and cortex. No masses, stones, or hydronephrosis. IMPRESSION: 1. Contracted gallbladder with cholelithiasis and borderline gallbladder wall thickening, fairly similar to the prior exam. 2. Normal diameter common duct, caliber of the common duct is significantly reduced compared to the study of 4 days prior. Dictated by August Lui MD @ Jun 05 2018 12:32AM Signed by Dr. August Lui @ Jun 05 2018 12:37AM
[2018-06-05 01:06] VITALS: BP 160/107
== END 2018-06-05 01:04 | disposition home or self-care (01) ==
LOC: MW.ED 22:25
DX: K29.70 Gastritis, unspecified, without bleeding (principal); K80.20 Calculus of gallbladder without cholecystitis without obstruction; F10.10 Alcohol abuse, uncomplicated; I10 Essential (primary) hypertension; K21.9 Gastro-esophageal reflux disease without esophagitis; F41.9 Anxiety disorder, unspecified; F32.9 Major depressive disorder, single episode, unspecified; Z88.8 Allergy status to other drugs, medicaments and biological substances; Z79.899 Other long term (current) drug therapy
CPT/HCPCS: 36415; 43753; 71045; 76705; 80053; 83690; 84484; 85025; 85610; 93005; 96374; 96375; 99285; A9270; C9113; J2405; 99283

== ENCOUNTER 2018-11-06 11:02 | Emergency (ER) | payer BC ==
[2018-11-06 11:26] VITALS: BP 136/92; PULSE 101
[2018-11-06] MEDS ORDERED: Sodium Chloride 0.9% 1,000 ML IV ONE (11:44)
[2018-11-06] MEDS ORDERED: fentaNYL 100 MCG/2 ML SDV IVPUSH ONE (11:44)
[2018-11-06] MEDS ORDERED: Ondansetron 4 MG/2 ML SDV IVPUSH ONE (11:54)
--- NOTE | 2018-11-06 11:54 | EDM.PDOC ---
ED HPI GENERAL MEDICAL PROBLEM - General Chief Complaint: Abdominal Pain Stated Complaint: gallbladder issues Time Seen by Provider: 11/06/18 11:16 Source of Information: Reports: Patient History Limitations: Reports: No Limitations - History of Present Illness INITIAL COMMENTS - FREE TEXT/NARRATIVE: Patient presents reporting gallbladder pain. Patient states that she had a full workup for her gallbladder, diagnosed with cholecystitis and was seen by a surgeon, Dr. Vigil, here. Due to her weight she was referred to Dr. Christophe Joy general surgery at [facility]. She had a cholecystectomy scheduled however ended up canceling her surgery due to personal reasons. Now she reports having a gallbladder attack. She has some nausea and vomiting but has been keeping down oral fluids. The pain is her typical gallbladder pain in the right upper quadrant and epigastric area. She has had some chills due to pain. RUQ Pain Score (Numeric/FACES): 10 - Related Data Allergies Allergy/AdvReac Type Severity Reaction Status Date / Time metoclopramide [From Reglan] Allergy Agitation Verified 11/06/18 11:23 Home Meds: Home Meds Omeprazole 60 mg PO DAILY 05/16/16 [History] DULoxetine [Cymbalta] 60 mg PO DAILY 06/21/16 [History] Losartan/Hydrochlorothiazide [Losartan-HCTZ 100-12.5 MG] 1 tab PO DAILY [History] buPROPion HCl [Wellbutrin Xl] 300 mg PO DAILY 12/20/17 [History] Past Medical History HEENT History: Reports: Other (See Below) Other HEENT History: wears glasses Cardiovascular History: Reports: Hypertension Respiratory History: Reports: None Gastrointestinal History: Reports: GERD, Other (See Below) Other Gastrointestinal History: hx diverticulitis 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 History: Reports: None [employer]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 Musculoskeletal History: Reports: Fracture Neurological History: Reports: None Psychiatric History: Reports: Anxiety, Depression Endocrine/Metabolic History: Reports: Obesity/BMI 30+ Hematologic History: Reports: Blood Transfusion(s) Immunologic History: Reports: None Oncologic (Cancer) History: Reports: None Dermatologic History: Reports: None Other Dermatologic History: acne - Infectious Disease History Infectious Disease History: Reports: None - Past Surgical History Head Surgeries/Procedures: Reports: None HEENT Surgical History: Reports: None Cardiovascular Surgical History: Reports: None Respiratory Surgical History: Reports: None GI Surgical History: Reports: Colonoscopy, EGD Female Surgical History: Reports: Hysterectomy Endocrine Surgical History: Reports: None Neurological Surgical History: Reports: None Musculoskeletal Surgical History: Reports: None Oncologic Surgical History: Reports: None Social & Family History - Family History Family Medical History: Noncontributory - Tobacco Use Smoking Status *Q: Current Every Day Smoker Years of Tobacco use: 25 Packs/Tins Daily: 0.2 - Caffeine Use Caffeine Use: Reports: Soda Caffeine Use Comment: 2-3 drinks.day - Recreational Drug Use Recreational Drug Use: Yes Recreational Drug Type: Reports: Marijuana/Hashish Recreational Drug Use Frequency: Socially ED ROS GENERAL - Review of Systems Review Of Systems: ROS reveals no pertinent complaints other than HPI. ED EXAM, GI/ABD - Physical Exam Exam: See Below General Appearance: Alert, No Apparent Distress Ears: Normal External Exam Nose: Normal Inspection Throat/Mouth: Normal Inspection Head: Atraumatic, Normocephalic Neck: Normal Inspection Respiratory/Chest: No Respiratory Distress, Lungs Clear Cardiovascular: Normal Peripheral Pulses, Regular Rate, Rhythm, No Murmur GI/Abdominal Exam: Soft, No Distention, Other (RUQ/epigastric tenderness) Extremities: Normal Inspection Neurological: Alert, Oriented Psychiatric: Normal Affect, Normal Mood Skin Exam: Warm, Dry, Intact Lymphatic: No Adenopathy Course - Vital Signs Last Recorded V/S: Last Vital Signs Temp 35.3 C 11/06/18 11:23 Pulse 101 H 11/06/18 11:23 Resp 18 11/06/18 11:23 BP 136/92 H 11/06/18 11:23 Pulse Ox 95 11/06/18 11:23 - Orders/Labs/Meds Meds: Medications Discontinued Medications Generic Name Dose Route Start Last Admin Trade Name Freq PRN Reason Stop Dose Admin Fentanyl 50 mcg 11/06/18 11:44 Sublimaze IVPUSH 11/06/18 11:45 ONETIME ONE Sodium Chloride 1,000 mls @ 999 mls/hr 11/06/18 11:44 Normal Saline IV 11/06/18 12:44 STAT ONE Ondansetron HCl 4 mg 11/06/18 11:54 Zofran IVPUSH 11/06/18 11:55 ONETIME ONE Departure - Departure Time of Disposition: 11:23 Disposition: Against Medical Advice 07 Clinical Impression: Epigastric pain, Cholecystitis - Discharge Information Referrals: PCP,None [Primary Care Provider] - Forms: ED Department Discharge
== END 2018-11-06 11:57 | disposition left against medical advice (07) ==
LOC: MW.ED 11:02
DX: K81.9 Cholecystitis, unspecified (principal); F17.210 Nicotine dependence, cigarettes, uncomplicated; K21.9 Gastro-esophageal reflux disease without esophagitis; I10 Essential (primary) hypertension; F41.9 Anxiety disorder, unspecified; F32.9 Major depressive disorder, single episode, unspecified; Z79.899 Other long term (current) drug therapy
CPT/HCPCS: 99282; 99283

== ENCOUNTER 2019-03-23 08:47 | Emergency (ER) | payer BC ==
--- NOTE | 2019-03-23 08:52 | EDM.PDOC ---
ED HPI GENERAL MEDICAL PROBLEM - General Stated Complaint: CHEST PAIN Time Seen by Provider: 03/23/19 08:50 - History of Present Illness INITIAL COMMENTS - FREE TEXT/NARRATIVE: HISTORY AND PHYSICAL: History of present illness: Patient's 43-year-old white female history of hypertension presents with concern of dyspnea patient is concerned about possible congestive heart failure because her symptoms are similar to that of her mother who does have CHF patient states she has had some increased leg swelling and shortness of breath she denies chest pain nausea vomiting fever chills palpitations. Review of systems: As per history of present illness and below otherwise all systems reviewed and negative. Past medical history: As per history of present illness and as reviewed below otherwise noncontributory. Surgical history: As per history of present illness and as reviewed below otherwise noncontributory. Social history: No reported history of drug or alcohol abuse. Family history: As per history of present illness and as reviewed below otherwise noncontributory. Physical exam: HEENT: Atraumatic, normocephalic, pupils reactive, negative for conjunctival pallor or scleral icterus, mucous membranes moist, throat clear, neck supple, nontender, trachea midline. Lungs: Clear to auscultation, breath sounds equal bilaterally, chest nontender. Heart: S1S2, regular, negative for clicks, rubs, or JVD. Abdomen: Soft, nondistended, nontender. Negative for masses or hepatosplenomegaly. Negative for costovertebral tenderness. Pelvis: Stable nontender. 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: Deferred. Rectal: Deferred. Extremities: Atraumatic, negative for cords or calf pain. Neurovascular unremarkable. Neuro: Awake, alert, oriented. Cranial nerves II through XII unremarkable. Cerebellum unremarkable. Motor and sensory unremarkable throughout. Exam nonfocal. Diagnostics: CBC CMP troponin PT/INR chest x-ray EKG BNP Therapeutics: IV O2 monitor Impression: #1 dyspnea #2 history of hypertension Definitive disposition and diagnosis as appropriate pending reevaluation and review of above. - Related Data Allergies Allergy/AdvReac Type Severity Reaction Status Date / Time metoclopramide [From Reglan] Allergy Agitation Verified 03/23/19 08:56 Home Meds: Home Meds . 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 Musculoskeletal History: Reports: Fracture Neurological History: Reports: None Psychiatric History: Reports: Anxiety, Depression Endocrine/Metabolic History: Reports: Obesity/BMI 30+ Hematologic History: Reports: Blood Transfusion(s) Immunologic History: Reports: None Oncologic (Cancer) History: Reports: None Dermatologic History: Reports: None Other Dermatologic History: acne - Infectious Disease History Infectious Disease History: Reports: None - Past Surgical History Head Surgeries/Procedures: Reports: None HEENT Surgical History: Reports: None Cardiovascular Surgical History: Reports: None Respiratory Surgical History: Reports: None GI Surgical History: Reports: Colonoscopy, EGD Female Surgical History: Reports: Hysterectomy Endocrine Surgical History: Reports: None Neurological Surgical History: Reports: None Musculoskeletal Surgical History: Reports: None Oncologic Surgical History: Reports: None Social & Family History - Family History Family Medical History: Noncontributory - Caffeine Use Caffeine Use: Reports: Soda Caffeine Use Comment: 2-3 drinks.day ED ROS GENERAL - Review of Systems Review Of Systems: Comprehensive ROS is negative, except as noted in HPI. ED EXAM, GENERAL - Physical Exam Exam: See Below (See dictation) Course - Vital Signs Last Recorded V/S: Last Vital Signs Temp 36.2 C 03/23/19 08:57 Pulse 89 03/23/19 09:22 Resp 18 03/23/19 09:22 BP 164/71 H 03/23/19 09:22 Pulse Ox 98 03/23/19 09:22 - Orders/Labs/Meds Orders: Active Orders 24 hr Category Date Time Status Cardiac Monitoring [RC] . DIRECTED Care 03/23/19 09:01 Active EKG Documentation Completion [RC] STAT Care 03/23/19 09:01 Active Sodium Chloride 0.9% [Normal Saline] Med 03/23/19 09:01 Active 10 ml IV ASDIRECTED PRN Sodium Chloride 0.9% [Saline Flush] Med 03/23/19 09:01 Active 10 ml FLUSH ASDIRECTED PRN Sodium Chloride 0.9% [Saline Flush] Med 03/23/19 09:01 Active 2.5 ml FLUSH ASDIRECTED PRN Peripheral IV Insertion Adult [OM.PC] Stat Oth 03/23/19 09:01 Ordered Medication Orders Sodium Chloride (Saline Flush) 10 ml FLUSH ASDIRECTED PRN PRN Reason: Keep Vein Open Last Admin: 03/23/19 09:23 Dose: 10 ml Sodium Chloride (Saline Flush) 2.5 ml FLUSH ASDIRECTED PRN PRN Reason: Keep Vein Open Last Admin: 03/23/19 09:22 Dose: 2.5 ml Sodium Chloride (Normal Saline) 10 ml IV ASDIRECTED PRN PRN Reason: IV Use Last Admin: 03/23/19 09:23 Dose: 10 ml Labs: Laboratory Tests 03/23/19 03/23/19 03/23/19 Range/Units 08:53 08:53 08:53 WBC 8.00 (4.0-11.0) K/uL RBC 3.96 L (4.30-5.90) M/uL Hgb 11.4 L (12.0-16.0) g/dL Hct 35.6 L (36.0-46.0) % MCV 89.9 (80.0-98.0) fL MCH 28.8 (27.0-32.0) pg MCHC 32.0 (31.0-37.0) g/dL RDW Std Deviation 48.5 (28.0-62.0) fl RDW Coeff of [place] 15 (11.0-15.0) % Plt Count 297 (150-400) K/uL MPV 9.80 (7.40-12.00) fL Neut % (Auto) 58.0 (48.0-80.0) % Lymph % (Auto) 32.4 (16.0-40.0) % [place] % (Auto) 5.6 (0.0-15.0) % Eos % (Auto) 3.0 (0.0-7.0) % Baso % (Auto) 1.0 (0.0-1.5) % Neut # (Auto) 4.6 (1.4-5.7) K/uL Lymph # (Auto) 2.6 H (0.6-2.4) K/uL [place] # (Auto) 0.5 (0.0-0.8) K/uL Eos # (Auto) 0.2 (0.0-0.7) K/uL Baso # (Auto) 0.1 (0.0-0.1) K/uL Nucleated RBC % 0.0 /100WBC Nucleated RBCs # 0 K/uL Sodium 142 (136-145) mmol/L Potassium 3.2 L (3.5-5.1) mmol/L Chloride 103 (98-107) mmol/L Carbon Dioxide 30.5 (21.0-32.0) mmol/L BUN 7 (7.0-18.0) mg/dL Creatinine 0.9 (0.6-1.0) mg/dL Est Cr Clr Drug Dosing 58.49 mL/min Estimated GFR (MDRD) > 60.0 ml/min Glucose 98 (74-106) mg/dL Calcium 9.0 (8.5-10.1) mg/dL Total Bilirubin 0.3 (0.2-1.0) mg/dL AST 21 (15-37) IU/L ALT 34 (14-63) IU/L Alkaline Phosphatase 62 (46-116) U/L Creatine Kinase 84 (26-308) U/L Troponin I < 0.050 (0.000-0.056) ng/mL B-Natriuretic Peptide 39 (<100) PG/ML Total Protein 7.7 (6.4-8.2) g/dL Albumin 4.0 (3.4-5.0) g/dL Globulin 3.7 (2.6-4.0) g/dL Albumin/Globulin Ratio 1.1 (0.9-1.6) Amylase 64 (25-115) U/L Lipase 204 (73-393) U/L Urine Color Urine Appearance Urine pH (5.0-8.0) Ur Specific [place] (1.001-1.035) Urine Protein (NEGATIVE) mg/dL Urine Glucose (UA) (NEGATIVE) mg/dL Urine Ketones (NEGATIVE) mg/dL Urine Occult Blood (NEGATIVE) Urine Nitrite (NEGATIVE) Urine Bilirubin (NEGATIVE) Urine Urobilinogen (<2.0) EU/dL Ur Leukocyte Esterase (NEGATIVE) 03/23/19 Range/Units 09:10 WBC (4.0-11.0) K/uL RBC (4.30-5.90) M/uL Hgb (12.0-16.0) g/dL Hct (36.0-46.0) % MCV (80.0-98.0) fL MCH (27.0-32.0) pg MCHC (31.0-37.0) g/dL RDW Std Deviation (28.0-62.0) fl RDW Coeff of [place] (11.0-15.0) % Plt Count (150-400) K/uL MPV (7.40-12.00) fL Neut % (Auto) (48.0-80.0) % Lymph % (Auto) (16.0-40.0) % [place] % (Auto) (0.0-15.0) % Eos % (Auto) (0.0-7.0) % Baso % (Auto) (0.0-1.5) % Neut # (Auto) (1.4-5.7) K/uL Lymph # (Auto) (0.6-2.4) K/uL [place] # (Auto) (0.0-0.8) K/uL Eos # (Auto) (0.0-0.7) K/uL Baso # (Auto) (0.0-0.1) K/uL Nucleated RBC % /100WBC Nucleated RBCs # K/uL Sodium (136-145) mmol/L Potassium (3.5-5.1) mmol/L Chloride (98-107) mmol/L Carbon Dioxide (21.0-32.0) mmol/L BUN (7.0-18.0) mg/dL Creatinine (0.6-1.0) mg/dL Est Cr Clr Drug Dosing mL/min Estimated GFR (MDRD) ml/min Glucose (74-106) mg/dL Calcium (8.5-10.1) mg/dL Total Bilirubin (0.2-1.0) mg/dL AST (15-37) IU/L ALT (14-63) IU/L Alkaline Phosphatase (46-116) U/L Creatine Kinase (26-308) U/L Troponin I (0.000-0.056) ng/mL B-Natriuretic Peptide (<100) PG/ML Total Protein (6.4-8.2) g/dL Albumin (3.4-5.0) g/dL Globulin (2.6-4.0) g/dL Albumin/Globulin Ratio (0.9-1.6) Amylase (25-115) U/L Lipase (73-393) U/L Urine Color STRAW Urine Appearance CLEAR Urine pH 6.5 (5.0-8.0) Ur Specific [place] <= 1.005 (1.001-1.035) Urine Protein NEGATIVE (NEGATIVE) mg/dL Urine Glucose (UA) NEGATIVE (NEGATIVE) mg/dL Urine Ketones NEGATIVE (NEGATIVE) mg/dL Urine Occult Blood NEGATIVE (NEGATIVE) Urine Nitrite NEGATIVE (NEGATIVE) Urine Bilirubin NEGATIVE (NEGATIVE) Urine Urobilinogen 0.2 (<2.0) EU/dL Ur Leukocyte Esterase NEGATIVE (NEGATIVE) Meds: Medications Generic Name Dose Route Start Last Admin Trade Name Freq PRN Reason Stop Dose Admin Sodium Chloride 10 ml 03/23/19 09:01 03/23/19 09:23 Saline Flush FLUSH 10 ml ASDIRECTED PRN Administration Keep Vein Open Sodium Chloride 2.5 ml 03/23/19 09:01 03/23/19 09:22 Saline Flush FLUSH 2.5 ml ASDIRECTED PRN Administration Keep Vein Open Sodium Chloride 10 ml 03/23/19 09:01 03/23/19 09:23 Normal Saline IV 10 ml ASDIRECTED PRN Administration IV Use Discontinued Medications Generic Name Dose Route Start Last Admin Trade Name Freq PRN Reason Stop Dose Admin Aspirin 324 mg 03/23/19 09:15 03/23/19 09:23 Aspirin PO 03/23/19 09:16 324 mg ONETIME ONE Administration Departure - Departure Time of Disposition: 10:07 Disposition: Home, Self-Care 01 Condition: Good Clinical Impression: Dyspnea, Encounter for medical screening examination, History of hypertension - Discharge Information Additional Instructions: The following information is given to patients seen in the emergency department who are being discharged to home. This information is to outline your options for follow-up care. We provide all patients seen in our emergency department with a follow-up referral. The need for follow-up, as well as the timing and circumstances, are variable depending upon the specifics of your emergency department visit. If you don't have a primary care physician on staff, we will provide you with a referral. We always advise you to contact your personal physician following an emergency department visit to inform them of the circumstance of the visit and for follow-up with them and/or the need for any referrals to a consulting specialist. The emergency department will also refer you to a specialist when appropriate. This referral assures that you have the opportunity for followup care with a specialist. All of these measure are taken in an effort to provide you with optimal care, which includes your followup. Under all circumstances we always encourage you to contact your private physician who remains a resource for coordinating your care. When calling for followup care, please make the office aware that this follow-up is from your recent emergency room visit. If for any reason you are refused follow-up, please contact the [facility] emergency department at and asked to speak to the emergency department charge nurse. Follow-up primary medical doctor continue current medications return as needed as discussed - My Orders Last 24 Hours: My Active Orders 03/23/19 09:01 Cardiac Monitoring [RC] . DIRECTED EKG Documentation Completion [RC] STAT Sodium Chloride 0.9% [Normal Saline] 10 ml IV ASDIRECTED PRN Sodium Chloride 0.9% [Saline Flush] 10 ml FLUSH ASDIRECTED PRN Sodium Chloride 0.9% [Saline Flush] 2.5 ml FLUSH ASDIRECTED PRN Peripheral IV Insertion Adult [OM.PC] Stat - Assessment/Plan Last 24 Hours: My Active Orders 03/23/19 09:01 Cardiac Monitoring [RC] . DIRECTED EKG Documentation Completion [RC] STAT Sodium Chloride 0.9% [Normal Saline] 10 ml IV ASDIRECTED PRN Sodium Chloride 0.9% [Saline Flush] 10 ml FLUSH ASDIRECTED PRN Sodium Chloride 0.9% [Saline Flush] 2.5 ml FLUSH ASDIRECTED PRN Peripheral IV Insertion Adult [OM.PC] Stat
[2019-03-23] MEDS ORDERED: Sodium Chloride 0.9% 10 ML Syringe FLUSH PRN (09:01)
[2019-03-23] MEDS ORDERED: Sodium Chloride 0.9% 10 ML SDV IV PRN (09:01)
[2019-03-23] MEDS ORDERED: Sodium Chloride 0.9% 2.5 ML Syringe FLUSH PRN (09:01)
[2019-03-23] MEDS ORDERED: Aspirin 81 MG Tab.Chew PO ONE (09:15)
[2019-03-23 09:22] VITALS: PULSE 89
[2019-03-23 09:29] LABS: BLOOD UREA NITROGEN,BUN 7 mg/dL (7.0-18.0); CARBON DIOXIDE,CO2 30.5 mmol/L (21.0-32.0); CHLORIDE,CL 103 mmol/L (98-107); GLUCOSE RANDOM 98 mg/dL (74-106); LIPASE 204 U/L (73-393); POTASSIUM,K 3.2 mmol/L (3.5-5.1); SODIUM,NA 142 mmol/L (136-145)
--- NOTE | 2019-03-23 09:31 | CR ---
INDICATION: Chest pain. TECHNIQUE: AP portable upright chest. COMPARISON: June 04, 2018. FINDINGS: Clear lungs. Normal heart size and pulmonary vascularity. Normal included skeletal thorax. IMPRESSION: Normal portable chest. Dictated by Leonard Stinson MD @ Mar 23 2019 9:28AM Signed by Dr. Leonard Stinson @ Mar 23 2019 9:29AM
[2019-03-23 10:15] VITALS: BP 162/88
== END 2019-03-23 10:19 | disposition home or self-care (01) ==
LOC: MW.ED 08:47
DX: R06.02 Shortness of breath (principal); I10 Essential (primary) hypertension; Z88.8 Allergy status to other drugs, medicaments and biological substances
CPT/HCPCS: 36415; 71045; 80053; 81003; 82150; 82550; 83690; 83880; 84484; 85025; 93005; 99285; A9270; J7050; 99283

== ENCOUNTER 2020-10-14 10:22 | Emergency (ER) | payer BC ==
[2020-10-14] MEDS ORDERED: Adenosine 6 MG/2 ML SDV IVPUSH ONE (10:37)
[2020-10-14] MEDS ORDERED: Sodium Chloride 0.9% 1,000 ML IV ONE ×2 (10:37→10:47)
--- NOTE | 2020-10-14 10:39 | PCM.EKG ---
#1 Interpretation EKG Date: 10/14/20 Time: 10:23 Rhythm: Other (SVT) Rate (Beats/Min): 166 ST-T: Normal #2 Interpretation EKG Date: 10/14/20 Time: 10:31 Rhythm: Other (sinus tach) Rate (Beats/Min): 126 ST-T: Normal
--- NOTE | 2020-10-14 10:51 | EDM.PDOC ---
ED HPI GENERAL MEDICAL PROBLEM - General Chief Complaint: Cardiovascular Problem Stated Complaint: SOB,ELEVATED HR Time Seen by Provider: 10/14/20 10:25 Source of Information: Reports: Patient History Limitations: Reports: No Limitations - History of Present Illness INITIAL COMMENTS - FREE TEXT/NARRATIVE: HISTORY AND PHYSICAL: History of present illness: Patient is a 44-year-old female presents to the emergency department with a 4- hour history of a fast heartbeat. Patient reports that she awoke this morning at 6am and she could feel her heart racing which woke her up. Patient states that she waited to see if it improved over time in the morning but it had not. Patient states that she has not at home pulse oximeter which showed that she had a heart rate in the 160s, she believed it was broken so she change the batteries and it again showed that she had a heart rate in the 160s. She notes she has been working out in the sun working long days for the last couple of days and states she may be dehydrated. Patient reports that she has never had this feeling before and never been told that she had any problems with her heart. Patient reports a history of hypertension which she used to take medication for but has not taken any medications in the last several years. Patient reports no other symptoms with this other than an anxious feeling. Patient notes she does smoke a pack of cigarettes every 4 days and has so since a teenager. Patient states that she socially drinks alcohol and does not drink habitually. Patient denies fever, chills, chest pain, shortness of breath, or cough. Denies headache, neck stiff ness, change in vision, syncope, or near syncope. Denies nausea, vomiting, abdominal pain, diarrhea, constipation, or dysuria. Has not noted any blood in urine or stool. Patient has been eating and drinking appropriately. Review of systems: As per history of present illness and below otherwise all systems reviewed and negative. Past medical history: As per history of present illness and as reviewed below otherwise noncontributory. Surgical history: As per history of present illness and as reviewed below otherwise noncontributory. Social history: See social history for further information Family history: As per history of present illness and as reviewed below otherwise noncontributory. Physical exam: General: Patient is alert, oriented, and in mild distress with diaphoretic.. Patient anxious but laying comfortably on exam table. Patient's heart rate noted to be in the 160-170s with a blood pressure in the 150s/80s, otherwise vitally stable. HEENT: Atraumatic, normocephalic, pupils equal and reactive bilaterally, negative for conjunctival pallor or scleral icterus, mucous membranes moist, TMs normal bilaterally, throat clear, neck supple, nontender, trachea midline. No drooling or trismus noted. No meningeal signs. No hot potato voice noted. Lungs: Clear to auscultation, breath sounds equal bilaterally, chest nontender. Heart: Tachycardic in the 160s bpm, S1S2, regular rhythm without overt murmur Abdomen: Soft, nondistended, nontender. Negative for masses or hepatosplenomegaly. Negative for costovertebral tenderness. Pelvis: Stable nontender. 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: Deferred. Rectal: Deferred. Skin: Intact, warm, and diaphoretic. No lesions or rashes noted. Extremities: Atraumatic, negative for cords or calf pain. Neurovascular unremarkable. Neuro: Awake, alert, oriented. Cranial nerves II through XII unremarkable. Cerebellum unremarkable. Motor and sensory unremarkable throughout. Exam nonfocal. Notes: Patient is a 44-year-old female who presents emergency department secondary to a 4-hour history of a fast heartbeat that woke her up early this AM. Upon arrival to the ED, patient's heart rate noted to be in the 160-170s but otherwise vitally stable. Patient is anxious and diaphoretic but denies chest pain. EKG initiated while at bedside which shows a rate of 166 without any clear p waves concerning for SVT; other consideration for sinus tachycardia given rate <180 and concern for dehydration per HPI. Dr. Mcdaniel at bedside who agrees with SVT interpretation. Adenosine 6 mg IV push was administered with me and Dr. Mcdaniel at bedside. Patient's heart rate responded immediately and was noted to be 110-115. A bolus of normal saline was started. Repeat EKG shows a rate of 126 this is consistent with sinus tachycardia now with regular distinctive P waves for every QRS. See Dr. Mcdaniel's dictation for specific EKG interpretation. Upon reexamination the patient is feeling less anxious and states that she "feels much better". Diaphoresis improved. HR now 102. Remains vitally stable. Will obtain basic labs, troponin, EKG, chest x-ray, TSH, and ethanol. CBC shows an isolated white blood cell count of 16.41, platelets mildly elevated at 423. Otherwise mild derangements of CBC unremarkable. Potassium is mildly low at 3.3, glucose mildly elevated at 162, otherwise remainder of CMP unremarkable. TSH within normal limits. Troponin negative. Alcohol negative. All incidental findings of lab work today discussed with patient importance to have this reevaluated by her primary care provider. Encourage patient to eat foods high in potassium such as bananas with recheck of her potassium with her primary care provider. Upon reevaluation of patient, she remains vitally stable with a heart rate in the 70s to 80s and otherwise comfortable on exam. Strict return precautions thoroughly discussed with patient. Discussed importance for follow-up with a primary care provider. Voices understanding and is agreeable to plan of care. Denies any further questions or concerns at this time. Diagnostics: CBC, CMP, troponin, TSH, ethanol, EKG, chest x-ray Therapeutics: Adenosine, normal saline Prescription: None Impression: Supraventricular tachycardia (SVT) Dehydration Plan: 1. Encourage small but frequent sips of fluid to prevent dehydration. 2. Follow-up with your primary care provider/software quality manager as discussed. Return to the ED as needed and as discussed. Definitive disposition and diagnosis as appropriate pending reevaluation and review of above. - Related Data Allergies Allergy/AdvReac Type Severity Reaction Status Date / Time metoclopramide [From Reglan] Allergy Agitation Verified 10/14/20 10:36 Home Meds: Home Meds . [No Known Home Meds] 03/23/19 [History] Past Medical History - Past Health History Medical/Surgical History: Denies Medical/Surgical History HEENT History: Reports: Other (See Below) Other HEENT History: wears glasses Cardiovascular History: Reports: Hypertension Respiratory History: Reports: None Gastrointestinal History: Reports: GERD, Other (See Below) Other Gastrointestinal History: hx diverticulitis 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 History: Reports: None APPLICATIONS INTERN History: Reports: None Musculoskeletal History: Reports: Fracture Neurological History: Reports: None Psychiatric History: Reports: Anxiety, Depression Endocrine/Metabolic History: Reports: Obesity/BMI 30+ Hematologic History: Reports: Blood Transfusion(s) Immunologic History: Reports: None Oncologic (Cancer) History: Reports: None Dermatologic History: Reports: None Other Dermatologic History: acne - Infectious Disease History Infectious Disease History: Reports: None - Past Surgical History Head Surgeries/Procedures: Reports: None HEENT Surgical History: Reports: None Cardiovascular Surgical History: Reports: None Respiratory Surgical History: Reports: None GI Surgical History: Reports: Colonoscopy, EGD Female Surgical History: Reports: Hysterectomy Endocrine Surgical History: Reports: None Neurological Surgical History: Reports: None Musculoskeletal Surgical History: Reports: None Oncologic Surgical History: Reports: None Social & Family History - Family History Family Medical History: No Pertinent Family History - Tobacco Use Tobacco Use Status *Q: Current Every Day Tobacco User Years of Tobacco use: 25 Packs/Tins Daily: 0.3 - Caffeine Use Caffeine Use: Reports: None Caffeine Use Comment: 2-3 drinks.day - Recreational Drug Use Recreational Drug Use: Yes Drug Use in Last 12 Months: Yes Recreational Drug Type: Reports: Marijuana/Hashish Recreational Drug Use Frequency: Daily ED ROS GENERAL - Review of Systems Review Of Systems: Comprehensive ROS is negative, except as noted in HPI. ED EXAM, GENERAL - Physical Exam Exam: See Below (see dictation) Course - Vital Signs Last Recorded V/S: Last Vital Signs Temp 98 F 10/14/20 10:30 Pulse 86 10/14/20 12:40 Resp 20 10/14/20 10:30 BP 179/86 H 10/14/20 12:40 Pulse Ox 97 10/14/20 12:40 - Orders/Labs/Meds Orders: Active Orders 24 hr Category Date Time Status UA RFX ARNEL AND CULT IF INDIC [URIN] Stat Lab 10/14/20 10:46 Ordered Labs: Laboratory Tests 10/14/20 10/14/20 10/14/20 Range/Units 10:33 10:33 10:33 WBC 16.41 H (4.0-11.0) K/uL RBC 5.42 (4.30-5.90) M/uL Hgb 15.2 (12.0-16.0) g/dL Hct 47.2 H (36.0-46.0) % MCV 87.1 (80.0-98.0) fL MCH 28.0 (27.0-32.0) pg MCHC 32.2 (31.0-37.0) g/dL RDW Std Deviation 45.9 (28.0-62.0) fl RDW Coeff of Migdalia 15 (11.0-15.0) % Plt Count 423 H (150-400) K/uL MPV 10.80 (7.40-12.00) fL Neut % (Auto) 68.9 (48.0-80.0) % Lymph % (Auto) 24.7 (16.0-40.0) % Alcorn % (Auto) 4.2 (0.0-15.0) % Eos % (Auto) 1.8 (0.0-7.0) % Baso % (Auto) 0.4 (0.0-1.5) % Neut # (Auto) 11.3 H (1.4-5.7) K/uL Lymph # (Auto) 4.1 H (0.6-2.4) K/uL Alcorn # (Auto) 0.7 (0.0-0.8) K/uL Eos # (Auto) 0.3 (0.0-0.7) K/uL Baso # (Auto) 0.1 (0.0-0.1) K/uL Nucleated RBC % 0.0 /100WBC Nucleated RBCs # 0 K/uL Sodium 144 (136-145) mmol/L Potassium 3.3 L (3.5-5.1) mmol/L Chloride 104 (98-107) mmol/L Carbon Dioxide 27.0 (21.0-32.0) mmol/L BUN 13 (7.0-18.0) mg/dL Creatinine 1.0 (0.6-1.0) mg/dL Est Cr Clr Drug Dosing 52.10 mL/min Estimated GFR (MDRD) > 60.0 ml/min Glucose 162 H (74-106) mg/dL Calcium 9.5 (8.5-10.1) mg/dL Magnesium 1.8 (1.8-2.4) mg/dL Total Bilirubin 0.3 (0.2-1.0) mg/dL AST 15 (15-37) IU/L ALT 22 (14-63) IU/L Alkaline Phosphatase 77 (46-116) U/L Troponin I < 0.050 (0.000-0.056) ng/mL Total Protein 8.4 H (6.4-8.2) g/dL Albumin 3.8 (3.4-5.0) g/dL Globulin 4.6 H (2.6-4.0) g/dL Albumin/Globulin Ratio 0.8 L (0.9-1.6) TSH 3rd Generation 0.90 (0.36-3.74) uIU/mL Ethyl Alcohol < 3.0 mg/dL Meds: Medications Discontinued Medications Generic Name Dose Route Start Last Admin Trade Name Alexandrea PRN Reason Stop Dose Admin Adenosine 6 mg 10/14/20 10:37 10/14/20 10:38 Adenosine 6 Mg/2 Ml Sdv IVPUSH 10/14/20 10:38 6 mg NOW ONE Administration Sodium Chloride 1,000 mls @ 999 mls/hr 10/14/20 10:37 10/14/20 10:38 Normal Saline IV 10/14/20 11:37 999 mls/hr .Bolus ONE Administration Sodium Chloride 1,000 mls @ 900 mls/hr 10/14/20 10:47 10/14/20 11:08 Normal Saline IV 10/14/20 11:53 900 mls/hr STAT ONE Administration Departure - Departure Time of Disposition: 12:15 Disposition: Home, Self-Care 01 Clinical Impression: SVT (supraventricular tachycardia), Dehydration - Discharge Information Instructions: Supraventricular Tachycardia, Adult, [id number], Dehydration, Adult, [id number] Referrals: PCP,None [Primary Care Provider] - Forms: ED Department Discharge Additional Instructions: The following information is given to patients seen in the emergency department who are being discharged to home. This information is to outline your options for follow-up care. We provide all patients seen in our emergency department with a follow-up referral. The need for follow-up, as well as the timing and circumstances, are variable depending upon the specifics of your emergency department visit. If you don't have a primary care physician on staff, we will provide you with a referral. We always advise you to contact your personal physician following an emergency department visit to inform them of the circumstance of the visit and for follow-up with them and/or the need for any referrals to a consulting specialist. The emergency department will also refer you to a specialist when appropriate. This referral assures that you have the opportunity for follow-up care with a specialist. All of these measure are taken in an effort to provide you with optimal care, which includes your follow-up. Under all circumstances we always encourage you to contact your private physician who remains a resource for coordinating your care. When calling for follow-up care, please make the office aware that this follow-up is from your recent emergency room visit. If for any reason you are refused follow-up, please contact the [facility] Emergency Department at and asked to speak to the emergency department charge nurse. Please follow up with your primary care physician. If you do not have a primary care physician, see below: [facility] Primary Carecard[facility] [address] [place] [id number] [facility] [address] [place] [address] 1. Encourage small but frequent sips of fluid to prevent dehydration. 2. Follow-up with your primary care provider/software quality manager as discussed. Return to the ED as needed and as discussed. Sepsis Event Note (ED) - Evaluation Sepsis Screening Result: No Definite Risk - Focused Exam Vital Signs: Vital Signs Temp Pulse Resp BP Pulse Ox 10/14/20 12:40 86 179/86 H 97 10/14/20 11:47 91 146/68 H 96 10/14/20 11:27 98 159/78 H 99 10/14/20 11:08 102 H 151/73 H 98 10/14/20 10:44 110 H 10/14/20 10:41 117 H 150/85 H 100 10/14/20 10:30 98 F 168 H 20 163/104 H 98 - My Orders Last 24 Hours: My Active Orders 10/14/20 10:46 UA RFX ARNEL AND CULT IF INDIC [URIN] Stat - Assessment/Plan Last 24 Hours: My Active Orders 10/14/20 10:46 UA RFX ARNEL AND CULT IF INDIC [URIN] Stat
[2020-10-14 11:23] LABS: BLOOD UREA NITROGEN,BUN 13 mg/dL (7.0-18.0); CHLORIDE,CL 104 mmol/L (98-107); GLUCOSE RANDOM 162 mg/dL (74-106); POTASSIUM,K 3.3 mmol/L (3.5-5.1); SODIUM,NA 144 mmol/L (136-145)
--- NOTE | 2020-10-14 11:41 | CR ---
For Patients: As a result of the Century Cures Act, medical imaging exams and procedure reports are released immediately into your electronic medical record. You may view this report before your referring provider. If you have questions, please contact your health care provider. Indication: Tachycardia Comparison: Single-view chest March 23, 2019 Technique: Single AP view chest Findings: There is hyperinflation and chronic interstitial change. There is no focal consolidation, effusion, or pneumothorax. The cardiomediastinal silhouette is within normal limits. The bony thorax is grossly intact. Impression: Mild chronic interstitial changes without evidence of acute cardiopulmonary abnormality. Dictated by Jair Infante MD @ 10/14/2020 11:40:[address] Jair Infante @ Oct 14 2020 11:40AM
[2020-10-14 12:40] VITALS: BP 179/86; PULSE 86
== END 2020-10-14 12:41 | disposition home or self-care (01) ==
LOC: MW.ED 10:22
DX: I47.1 Supraventricular tachycardia (principal); E86.0 Dehydration; I10 Essential (primary) hypertension; E66.9 Obesity, unspecified; Z68.41 Body mass index [BMI] 40.0-44.9, adult; Z72.0 Tobacco use; Z88.8 Allergy status to other drugs, medicaments and biological substances
CPT/HCPCS: 36415; 71045; 80053; 80307; 83735; 84443; 84484; 85025; 93005; 96374; 99285; J0153; J7030

== ENCOUNTER 2021-05-29 17:54 | Observation (INO) | payer BC ==
[2021-05-29] MEDS ORDERED: Sodium Chloride 0.9% 1,000 ML IV ONE ×2 (18:03→19:59)
[2021-05-29] MEDS ORDERED: Ketorolac 30 MG/ML SDV IVPUSH ONE (18:14)
[2021-05-29 19:40] LABS: BLOOD UREA NITROGEN,BUN 12 mg/dL (7.0-18.0); CARBON DIOXIDE,CO2 24.5 mmol/L (21.0-32.0); CHLORIDE,CL 100 mmol/L (98-107); GLUCOSE RANDOM 111 mg/dL (74-106); POTASSIUM,K 3.6 mmol/L (3.5-5.1); SODIUM,NA 137 mmol/L (136-145)
[2021-05-29] MEDS ORDERED: LORazepam 2 MG/ML SDV IVPUSH ONE ×2 (20:57→22:34)
[2021-05-29] MEDS ORDERED: LORazepam 2 MG/ML SDV ONE (20:58)
[2021-05-29] MEDS ORDERED: LORazepam 2 MG/ML SDV IVPUSH PRN (23:57)
[2021-05-30] MEDS ORDERED: LORazepam 2 MG/ML SDV IVPUSH PRN (00:44)
[2021-05-30] MEDS ORDERED: Potassium Chloride 20 MEQ Tab.ER PO ONE (00:47)
[2021-05-30] MEDS ORDERED: Thiamine 100 MG in Sodium Chloride 0.9% 100 ML IV SCH (01:00)
[2021-05-30] MEDS: Thiamine 200 MG/2 ML MDV IV SCH ×2 (01:29→08:30)
[2021-05-30] MEDS: Folic Acid 1 MG Tab PO SCH ×2 (01:33→08:30)
[2021-05-30 08:07] LABS: BLOOD UREA NITROGEN,BUN 13 mg/dL (7.0-18.0); CARBON DIOXIDE,CO2 23.2 mmol/L (21.0-32.0); CHLORIDE,CL 104 mmol/L (98-107); GLUCOSE RANDOM 96 mg/dL (74-106); POTASSIUM,K 3.7 mmol/L (3.5-5.1); SODIUM,NA 139 mmol/L (136-145)
[2021-05-30] MEDS ORDERED: levETIRAcetam 500 MG Tab PO SCH (09:00)
[2021-05-30 15:30] VITALS: BP 127/45; PULSE 80
== END 2021-05-30 18:30 | disposition left against medical advice (07) ==
LOC: MW.ED 17:54 → MW.MS 21:03
PROVIDERS: ADMIT Internal Medicine; ATTEND Internal Medicine
DX: R56.9 Unspecified convulsions (principal); F10.239 Alcohol dependence with withdrawal, unspecified; I10 Essential (primary) hypertension; K21.9 Gastro-esophageal reflux disease without esophagitis; F32.A Depression, unspecified; E66.9 Obesity, unspecified; F17.210 Nicotine dependence, cigarettes, uncomplicated; Z88.8 Allergy status to other drugs, medicaments and biological substances; Z20.822 Contact with and (suspected) exposure to COVID-19
CPT/HCPCS: 36415; 70450; 71045; 80053; 80305; 80307; 81001; 81025; 83605; 83735; 84100; 85025; 87635; 93005; 96365; 96375; 96376; 99285; A9270; G0378; J1885; J1953; J2060; J3411; J7030; U0002

== ENCOUNTER 2021-06-09 15:07 | Emergency (ER) | payer BC ==
[2021-06-09] MEDS ORDERED: Acetaminophen/HYDROcodone 325-5 MG Tab PO ONE (16:11)
[2021-06-09 16:37] VITALS: BP 168/85; PULSE 91
== END 2021-06-09 16:38 | disposition home or self-care (01) ==
LOC: MW.ED 15:07
DX: S52.501A Unspecified fracture of the lower end of right radius, initial encounter for closed fracture (principal); M81.0 Age-related osteoporosis without current pathological fracture; I10 Essential (primary) hypertension; E66.9 Obesity, unspecified; Z68.41 Body mass index [BMI] 40.0-44.9, adult; Z88.8 Allergy status to other drugs, medicaments and biological substances; W19.XXXA Unspecified fall, initial encounter
CPT/HCPCS: 73090; 73130; 99283; A9270

== ENCOUNTER 2021-07-24 17:54 | Inpatient (IN) | payer BC ==
[2021-07-24] MEDS ORDERED: LORazepam 2 MG/ML SDV IVPUSH ONE ×5 (17:55→21:19)
[2021-07-24] MEDS ORDERED: Ondansetron 4 MG/2 ML SDV IVPUSH ONE (18:08)
[2021-07-24] MEDS ORDERED: Promethazine 25 MG/ML SDV IM ONE (19:02)
[2021-07-24 19:21] LABS: ACETAMINOPHEN <2.0 ug/mL; BLOOD UREA NITROGEN,BUN 8 mg/dL (7.0-18.0); CARBON DIOXIDE,CO2 25.2 mmol/L (21.0-32.0); CHLORIDE,CL 104 mmol/L (98-107); GLUCOSE RANDOM 131 mg/dL (74-106); SODIUM,NA 144 mmol/L (136-145)
[2021-07-24 20:19] LABS: CORONAVIRUS COVID-19 NAA NEGATIVE (NEGATIVE); INFLUENZA A NAA NEGATIVE (NEGATIVE); INFLUENZA B NAA NEGATIVE (NEGATIVE)
[2021-07-24] MEDS ORDERED: Sodium Chloride 0.9% 1,000 ML IV ONE (20:23)
[2021-07-24] MEDS ORDERED: LORazepam 2 MG/ML SDV ONE (20:46)
[2021-07-24] MEDS: Sodium Chloride 0.9% 1,000 ML IV SCH (22:57)
[2021-07-24] MEDS: Thiamine 200 MG/2 ML MDV IVPUSH SCH (23:21)
[2021-07-24] MEDS: Folic Acid 50 MG/10 ML MDV SUBCUT SCH (23:21)
[2021-07-25] MEDS: Labetalol 100 MG/20 ML MDV IVPUSH PRN ×2 (05:09→18:58)
[2021-07-25 07:12] LABS: BLOOD UREA NITROGEN,BUN 7 mg/dL (7.0-18.0); CHLORIDE,CL 104 mmol/L (98-107); GLUCOSE RANDOM 105 mg/dL (74-106); POTASSIUM,K 3.2 mmol/L (3.5-5.1); SODIUM,NA 140 mmol/L (136-145)
[2021-07-25] MEDS: Sodium Chloride 0.9% 1,000 ML IV SCH ×2 (07:15→22:56)
[2021-07-25] MEDS: Folic Acid 50 MG/10 ML MDV SUBCUT SCH (08:20)
[2021-07-25] MEDS: Thiamine 200 MG/2 ML MDV IVPUSH SCH (08:21)
[2021-07-25] MEDS ORDERED: Magnesium Sulfate/Water 2 GM/50 ML Premix Bag IV ONE (11:33)
[2021-07-25] MEDS ORDERED: Magnesium Sulfate/Water 2 GM in Premix Bag 1 BAG IV ONE (11:45)
[2021-07-25] MEDS ORDERED: Potassium Chloride 20 MEQ Tab.ER PO ONE (11:45)
[2021-07-25] MEDS: LORazepam 2 MG/ML SDV IVPUSH PRN ×4 (12:06→18:41)
[2021-07-25] MEDS: Pantoprazole 40 MG Tab.CR PO SCH (13:04)
[2021-07-25] MEDS: Ondansetron 4 MG/2 ML SDV IVPUSH PRN (18:41)
[2021-07-25] MEDS ORDERED: Diazepam 2 MG Tab PO SCH (21:00)
[2021-07-25] MEDS: Diazepam 5 MG Tab PO SCH (21:05)
[2021-07-26] MEDS: LORazepam 2 MG/ML SDV IVPUSH PRN ×5 (06:25→21:47)
[2021-07-26 06:28] LABS: BLOOD UREA NITROGEN,BUN 6 mg/dL (7.0-18.0); CARBON DIOXIDE,CO2 25.4 mmol/L (21.0-32.0); CHLORIDE,CL 105 mmol/L (98-107); GLUCOSE RANDOM 86 mg/dL (74-106); POTASSIUM,K 3.4 mmol/L (3.5-5.1); SODIUM,NA 141 mmol/L (136-145)
[2021-07-26] MEDS: Ondansetron 4 MG/2 ML SDV IVPUSH PRN ×3 (06:30→15:10)
[2021-07-26] MEDS: Sodium Chloride 0.9% 1,000 ML IV SCH (06:57)
[2021-07-26] MEDS: Diazepam 5 MG Tab PO SCH ×2 (08:09→20:17)
[2021-07-26] MEDS: Folic Acid 50 MG/10 ML MDV SUBCUT SCH (08:09)
[2021-07-26] MEDS: Thiamine 200 MG/2 ML MDV IVPUSH SCH (08:10)
[2021-07-26] MEDS: Labetalol 100 MG/20 ML MDV IVPUSH PRN ×2 (08:10→14:15)
[2021-07-26] MEDS: Pantoprazole 40 MG Tab.CR PO SCH (08:16)
[2021-07-26] MEDS ORDERED: Potassium Chloride 20 MEQ Tab.ER PO ONE (09:45)
[2021-07-26] MEDS ORDERED: Losartan 50 MG Tab PO SCH (10:00)
[2021-07-26 20:18] VITALS: PULSE 77
[2021-07-26] MEDS ORDERED: Metoprolol Succinate 25 MG Tab.ER PO SCH (21:00)
[2021-07-26 21:32] VITALS: BP 144/66
== END 2021-07-26 22:35 | disposition left against medical advice (07) | DRG 770 ==
LOC: MW.ED 17:54 → MW.ICU 20:15
PROVIDERS: ADMIT Internal Medicine; ATTEND Internal Medicine
DX: F10.239 Alcohol dependence with withdrawal, unspecified (principal); R56.9 Unspecified convulsions; K21.9 Gastro-esophageal reflux disease without esophagitis; F41.9 Anxiety disorder, unspecified; F32.A Depression, unspecified; E66.9 Obesity, unspecified; E87.6 Hypokalemia; I10 Essential (primary) hypertension; Z20.822 Contact with and (suspected) exposure to COVID-19; Z68.41 Body mass index [BMI] 40.0-44.9, adult
CPT/HCPCS: 0240U; 36415; 70450; 70450-26; 80053; 80143; 80179; 80305-QW; 80307; 81001; 83735; 84100; 84703; 85025; 93005; 93010; 96372; 96374; 99285-25; 99291; A9270-GY; J2060; J2405; J2550; J3411; J3475; J3490; J7030

== ENCOUNTER 2021-09-26 09:01 | Inpatient (IN) | payer BC ==
[2021-09-26] MEDS ORDERED: Lactated Ringers 1,000 ML IV ONE (09:09)
[2021-09-26] MEDS ORDERED: LORazepam 2 MG/ML SDV IVPUSH ONE ×2 (10:08→17:00)
[2021-09-26 10:12] LABS: BLOOD UREA NITROGEN,BUN 8 mg/dL (7.0-18.0); CARBON DIOXIDE,CO2 24.6 mmol/L (21.0-32.0); CHLORIDE,CL 102 mmol/L (98-107); GLUCOSE RANDOM 99 mg/dL (74-106); POTASSIUM,K 3.2 mmol/L (3.5-5.1); SODIUM,NA 139 mmol/L (136-145)
[2021-09-26] MEDS ORDERED: Potassium Chloride 10% 20 MEQ/15 ML Soln 30 ML UD Cup PO ONE (10:22)
[2021-09-26] MEDS ORDERED: Magnesium Sulfate/Water 2 GM in Premix Bag 1 BAG IV ONE (10:22)
[2021-09-26] MEDS ORDERED: Thiamine 200 MG/2 ML MDV IVPUSH STA (11:08)
[2021-09-26] MEDS ORDERED: chlordiazePOXIDE 10 MG Cap PO ONE (11:30)
[2021-09-26] MEDS ORDERED: LORazepam 2 MG/ML Syringe IVPUSH PRN (14:38)
[2021-09-26] MEDS ORDERED: LORazepam 2 MG/ML SDV IVPUSH PRN (15:00)
[2021-09-26] MEDS: Enoxaparin 40 MG/0.4 ML Syringe SUBCUT SCH (15:46)
[2021-09-26] MEDS: LORazepam 2 MG/ML SDV IVPUSH PRN (18:53)
[2021-09-26] MEDS: Lactated Ringers 1,000 ML IV SCH (19:34)
[2021-09-27] MEDS: Lactated Ringers 1,000 ML IV SCH ×3 (03:14→20:16)
[2021-09-27 06:15] LABS: BLOOD UREA NITROGEN,BUN 7 mg/dL (7.0-18.0); CARBON DIOXIDE,CO2 27.6 mmol/L (21.0-32.0); CHLORIDE,CL 103 mmol/L (98-107); GLUCOSE RANDOM 88 mg/dL (74-106); POTASSIUM,K 2.9 mmol/L (3.5-5.1); SODIUM,NA 139 mmol/L (136-145)
[2021-09-27] MEDS ORDERED: Folic Acid 50 MG/10 ML MDV IV SCH (09:00)
[2021-09-27] MEDS ORDERED: Potassium Chloride 20 MEQ Tab.ER PO ONE (09:00)
[2021-09-27] MEDS ORDERED: Thiamine 200 MG/2 ML MDV IVPUSH SCH (09:00)
[2021-09-27] MEDS ORDERED: Potassium Chloride Riders 40 MEQ in Premix Bag 1 BAG IV ONE (09:00)
[2021-09-27] MEDS: LORazepam 2 MG/ML SDV IVPUSH PRN ×3 (13:28→23:22)
[2021-09-27] MEDS: Enoxaparin 40 MG/0.4 ML Syringe SUBCUT SCH (13:31)
[2021-09-27] MEDS ORDERED: Phosphorus #1 250 MG Tab PO ONE (13:51)
[2021-09-28] MEDS: Lactated Ringers 1,000 ML IV SCH ×2 (05:09→15:10)
[2021-09-28] MEDS: LORazepam 2 MG/ML SDV IVPUSH PRN ×2 (05:51→12:51)
[2021-09-28 07:40] LABS: BLOOD UREA NITROGEN,BUN 5 mg/dL (7.0-18.0); CARBON DIOXIDE,CO2 27.4 mmol/L (21.0-32.0); CHLORIDE,CL 103 mmol/L (98-107); GLUCOSE RANDOM 83 mg/dL (74-106); POTASSIUM,K 3.1 mmol/L (3.5-5.1); SODIUM,NA 140 mmol/L (136-145)
[2021-09-28] MEDS ORDERED: Potassium Chloride 20 MEQ Tab.ER PO ONE (08:00)
[2021-09-28] MEDS ORDERED: Potassium Chloride Riders 40 MEQ in Premix Bag 1 BAG IV SCH (08:00)
[2021-09-28] MEDS ORDERED: Magnesium Sulfate/Water 2 GM in Premix Bag 1 BAG IV ONE (08:00)
[2021-09-28] MEDS ORDERED: Thiamine 100 MG Tab PO SCH (09:00)
[2021-09-28] MEDS ORDERED: Folic Acid 1 MG Tab PO SCH (09:00)
[2021-09-28] MEDS ORDERED: amLODIPine 5 MG Tab PO SCH (09:00)
[2021-09-28] MEDS: Enoxaparin 40 MG/0.4 ML Syringe SUBCUT SCH (15:13)
[2021-09-28 16:34] LABS: POTASSIUM,K 4.5 mmol/L (3.5-5.1)
[2021-09-28 17:06] VITALS: BP 179/98; PULSE 74
== END 2021-09-28 17:48 | disposition home or self-care (01) | DRG 775 ==
LOC: MW.ED 09:01 → MW.ICU 14:21 → MW.MS 09-28 13:27
PROVIDERS: ADMIT Student in an Organized Health Care Education/Training Program; ATTEND Student in an Organized Health Care Education/Training Program
DX: F10.230 Alcohol dependence with withdrawal, uncomplicated (principal); R56.9 Unspecified convulsions; I10 Essential (primary) hypertension; K21.9 Gastro-esophageal reflux disease without esophagitis; F41.9 Anxiety disorder, unspecified; E87.2 Acidosis; F32.A Depression, unspecified; E66.9 Obesity, unspecified; Z20.822 Contact with and (suspected) exposure to COVID-19; F17.200 Nicotine dependence, unspecified, uncomplicated; E87.6 Hypokalemia; E83.42 Hypomagnesemia; Z90.710 Acquired absence of both cervix and uterus; Z68.41 Body mass index [BMI] 40.0-44.9, adult
CPT/HCPCS: 36415; 80053; 80307; 82550; 83605; 83735; 84100; 84132; 84443; 85025; 85027; 96361; 96365; 96366; 96375; 99285-25; A9270-GY; J1650; J2060; J3360; J3411; J3475; J3480; J7120; U0002

== ENCOUNTER 2022-01-12 13:49 | Inpatient (IN) | payer BC ==
[2022-01-12] MEDS ORDERED: Sodium Chloride 0.9% 2.5 ML Syringe FLUSH PRN (14:17)
[2022-01-12] MEDS ORDERED: Sodium Chloride 0.9% 10 ML Syringe FLUSH PRN (14:17)
[2022-01-12] MEDS ORDERED: Lactated Ringers 1,000 ML IV ONE ×2 (14:17→15:24)
[2022-01-12] MEDS ORDERED: LORazepam 2 MG/ML SDV IVPUSH ONE (14:27)
[2022-01-12] MEDS ORDERED: Ondansetron 4 MG/2 ML SDV IVPUSH ONE (14:27)
[2022-01-12] MEDS ORDERED: LORazepam 1 MG Tab PO PRN (14:31)
[2022-01-12 15:13] LABS: CARBON DIOXIDE,CO2 25.3 mmol/L (21.0-32.0); POTASSIUM,K 4.1 mmol/L (3.5-5.1)
[2022-01-12] MEDS ORDERED: chlordiazePOXIDE 10 MG Cap PO STA (16:00)
[2022-01-12] MEDS ORDERED: LORazepam 2 MG/ML SDV IVPUSH PRN (17:49)
[2022-01-12] MEDS ORDERED: LORazepam 2 MG/ML Syringe IVPUSH PRN (18:48)
[2022-01-12] MEDS ORDERED: Magnesium Sulfate/Water 2 GM in Premix Bag 1 BAG IV ONE (19:02)
[2022-01-12] MEDS: Folic Acid 1 MG Tab PO SCH (19:58)
[2022-01-12] MEDS ORDERED: Thiamine 100 MG Tab PO SCH (21:00)
[2022-01-12] MEDS: Lactated Ringers 1,000 ML IV SCH (22:40)
[2022-01-13 06:48] LABS: CARBON DIOXIDE,CO2 28.3 mmol/L (21.0-32.0)
[2022-01-13] MEDS: Lactated Ringers 1,000 ML IV SCH ×2 (06:48→13:12)
[2022-01-13] MEDS ORDERED: NS with KCl 40mEq 1,000 ML IV ONE (07:30)
[2022-01-13] MEDS ORDERED: Potassium Chloride 20 MEQ Tab.ER PO ONE (07:30)
[2022-01-13] MEDS: Folic Acid 1 MG Tab PO SCH (08:00)
[2022-01-13 11:45] VITALS: BP 142/91; PULSE 71
[2022-01-16] MEDS ORDERED: Thiamine 100 MG Tab PO ONE (07:15)
[2022-01-16] MEDS ORDERED: Folic Acid 1 MG Tab PO SCH (09:00)
== END 2022-01-13 14:10 | disposition left against medical advice (07) | DRG 770 ==
LOC: MW.ED 13:49 → MW.MS 16:02
PROVIDERS: ADMIT Student in an Organized Health Care Education/Training Program; ATTEND Internal Medicine
DX: F10.239 Alcohol dependence with withdrawal, unspecified (principal); R56.9 Unspecified convulsions; F17.210 Nicotine dependence, cigarettes, uncomplicated; Z88.8 Allergy status to other drugs, medicaments and biological substances; K21.9 Gastro-esophageal reflux disease without esophagitis; E66.9 Obesity, unspecified; Z20.822 Contact with and (suspected) exposure to COVID-19; F41.9 Anxiety disorder, unspecified; F32.A Depression, unspecified; I10 Essential (primary) hypertension; Z90.710 Acquired absence of both cervix and uterus; Z79.899 Other long term (current) drug therapy; Z68.34 Body mass index [BMI] 34.0-34.9, adult
CPT/HCPCS: 36415; 70450; 70450-26; 71045; 71045-26; 80053; 81001; 82009; 82550; 82947; 83605; 83735; 84100; 84703; 85025; 87040; 96361; 96374; 96375; 97162-GP; 99285-25; A9270-GY; J2060; J2405; J3475; J3480; J3490; J7120; U0002

== ENCOUNTER 2022-01-16 01:55 | Observation (INO) | payer BC ==
[2022-01-16 02:46] LABS: CARBON DIOXIDE,CO2 26.8 mmol/L (21.0-32.0); POTASSIUM,K 3.6 mmol/L (3.5-5.1)
[2022-01-16] MEDS ORDERED: Aspirin 325 MG Tab PO ONE (02:51)
[2022-01-16] MEDS ORDERED: Thiamine 100 MG Tab PO ONE (07:45)
[2022-01-16] MEDS ORDERED: Pantoprazole 40 MG in Sodium Chloride 0.9% 10 ML IVPUSH ONE (08:30)
[2022-01-16] MEDS: Folic Acid 1 MG Tab PO SCH (09:46)
[2022-01-16] MEDS: LORazepam 2 MG/ML SDV IVPUSH PRN ×5 (10:38→23:31)
[2022-01-16] MEDS: Ondansetron 4 MG/2 ML SDV IVPUSH PRN ×2 (10:50→16:03)
[2022-01-16] MEDS: Lactated Ringers 1,000 ML IV SCH ×2 (12:35→23:31)
[2022-01-16] MEDS ORDERED: Magnesium Sulfate/Water 2 GM in Premix Bag 1 BAG IV ONE (12:40)
[2022-01-17 06:16] LABS: CARBON DIOXIDE,CO2 26.3 mmol/L (21.0-32.0); POTASSIUM,K 3.1 mmol/L (3.5-5.1)
[2022-01-17] MEDS: LORazepam 2 MG/ML SDV IVPUSH PRN ×2 (07:22→13:28)
[2022-01-17] MEDS ORDERED: Thiamine 100 MG Tab PO ONE (07:55)
[2022-01-17] MEDS ORDERED: NS with KCl 40mEq 1,000 ML IV SCH (08:45)
[2022-01-17] MEDS ORDERED: Thiamine 100 MG Tab PO SCH (09:00)
[2022-01-17] MEDS: Folic Acid 1 MG Tab PO SCH (09:27)
[2022-01-17] MEDS ORDERED: Enoxaparin 40 MG/0.4 ML Syringe SUBCUT SCH (10:00)
[2022-01-17 14:48] VITALS: BP 185/96; PULSE 75
== END 2022-01-17 14:50 | disposition left against medical advice (07) ==
LOC: MW.ED 01:55 → MW.MS 03:56
PROVIDERS: ADMIT Internal Medicine; ATTEND Internal Medicine
DX: F10.139 Alcohol abuse with withdrawal, unspecified (principal); F10.188 Alcohol abuse with other alcohol-induced disorder; R00.2 Palpitations; I10 Essential (primary) hypertension; F41.9 Anxiety disorder, unspecified; F32.A Depression, unspecified; E66.9 Obesity, unspecified; F17.210 Nicotine dependence, cigarettes, uncomplicated; F15.10 Other stimulant abuse, uncomplicated; R77.8 Other specified abnormalities of plasma proteins; Z20.822 Contact with and (suspected) exposure to COVID-19; Z88.8 Allergy status to other drugs, medicaments and biological substances; Z98.890 Other specified postprocedural states
CPT/HCPCS: 36415; 71046; 80048; 80053; 80305; 81001; 83735; 84100; 84484; 85025; 87635; 93005; 96372; 96374; 96375; 96376; 99285; A9270; C9113; G0378; J1650; J2060; J2405; J3475; J3480; J3490; J7120; 93010; U0002

== ENCOUNTER 2022-05-18 20:25 | Inpatient (IN) | payer BC ==
[2022-05-18] MEDS ORDERED: LORazepam 2 MG/ML SDV IVPUSH ONE (20:32)
[2022-05-18] MEDS ORDERED: Haloperidol Lactate 5 MG/ML SDV ONE (20:32)
[2022-05-18 20:52] LABS: BLOOD UREA NITROGEN,BUN 9 mg/dL (7.0-18.0); CARBON DIOXIDE,CO2 19.1 mmol/L (21.0-32.0); CHLORIDE,CL 101 mmol/L (98-107); GLUCOSE RANDOM 113 mg/dL (74-106); SODIUM,NA 140 mmol/L (136-145)
[2022-05-18 20:55] LABS: ESTIMATED GFR 63 mL/min (>60)
[2022-05-19] MEDS ORDERED: LORazepam 2 MG/ML SDV IVPUSH PRN (00:02)
[2022-05-19] MEDS ORDERED: Sodium Chloride 0.9% 1,000 ML IV ONE (00:06)
[2022-05-19 00:51] LABS: INFLUENZA A NAA NEGATIVE (NEGATIVE); INFLUENZA B NAA NEGATIVE (NEGATIVE)
[2022-05-19] MEDS: Sodium Chloride 0.9% 1,000 ML IV SCH ×3 (00:57→16:27)
[2022-05-19 06:30] LABS: CARBON DIOXIDE,CO2 25.3 mmol/L (21.0-32.0); POTASSIUM,K 2.8 mmol/L (3.5-5.1)
[2022-05-19] MEDS ORDERED: Potassium Chloride 20 MEQ Tab.ER PO ONE ×2 (07:00→14:32)
[2022-05-19] MEDS: Potassium Chloride 100 ML IV SCH ×2 (07:29→09:32)
[2022-05-19] MEDS ORDERED: Magnesium Oxide 400 MG Tab PO ONE ×2 (08:18→14:32)
[2022-05-19] MEDS: Folic Acid 1 MG Tab PO SCH (08:31)
[2022-05-19] MEDS: Thiamine 100 MG Tab PO SCH (08:31)
[2022-05-19] MEDS: Multivitamin Tab PO SCH (08:31)
[2022-05-19] MEDS ORDERED: Benzocaine 20% Topical Spray UD MUCMEM PRN (09:09)
[2022-05-19] MEDS ORDERED: Polyethylene Glycol 3350 Powder 17 GM Packet PO PRN (09:39)
[2022-05-19] MEDS ORDERED: Sodium Chloride 0.9% 2.5 ML Syringe FLUSH PRN (09:39)
[2022-05-19] MEDS ORDERED: Sodium Chloride 0.9% 10 ML Syringe FLUSH PRN (09:39)
[2022-05-19] MEDS ORDERED: Acetaminophen 325 MG Tab PO PRN (09:39)
[2022-05-19] MEDS ORDERED: Ondansetron 4 MG/2 ML SDV IVPUSH SCH (09:45)
[2022-05-19] MEDS ORDERED: Enoxaparin 40 MG/0.4 ML Syringe SUBCUT SCH (10:00)
[2022-05-19] MEDS ORDERED: Albuterol/Ipratropium 3.0-0.5 MG/3 ML Neb Soln NEB PRN (10:00)
[2022-05-19] MEDS ORDERED: Ondansetron 4 MG/2 ML SDV IVPUSH PRN (11:30)
[2022-05-19 13:54] LABS: CARBON DIOXIDE,CO2 25.8 mmol/L (21.0-32.0); POTASSIUM,K 3.3 mmol/L (3.5-5.1)
[2022-05-20] MEDS: Sodium Chloride 0.9% 1,000 ML IV SCH (01:15)
[2022-05-20 06:20] LABS: CARBON DIOXIDE,CO2 22.8 mmol/L (21.0-32.0); POTASSIUM,K 3.2 mmol/L (3.5-5.1)
[2022-05-20] MEDS ORDERED: Potassium Chloride 20 MEQ Tab.ER PO ONE ×3 (06:58→11:45)
[2022-05-20] MEDS ORDERED: Magnesium Sulfate/Water 2 GM in Premix Bag 1 BAG IV ONE (07:00)
[2022-05-20] MEDS ORDERED: Phosphorus #1 250 MG Tab PO SCH (07:15)
[2022-05-20 08:09] VITALS: BP 126/59; PULSE 72
[2022-05-20] MEDS ORDERED: Sodium Ferric Gluconate Cmplex 125 MG in Sodium Chloride 0.9% 100 ML IV ONE (08:15)
[2022-05-20] MEDS: Folic Acid 1 MG Tab PO SCH (08:58)
[2022-05-20] MEDS: Multivitamin Tab PO SCH (08:58)
[2022-05-20] MEDS: Thiamine 100 MG Tab PO SCH (08:58)
== END 2022-05-20 11:55 | disposition home or self-care (01) | DRG 53 ==
LOC: MW.ED 20:25 → MW.ICU 05-19 01:28 → MW.MS 05-19 14:27
PROVIDERS: ADMIT Internal Medicine; ATTEND Internal Medicine
DX: R56.9 Unspecified convulsions (principal); I10 Essential (primary) hypertension; F15.90 Other stimulant use, unspecified, uncomplicated; F12.90 Cannabis use, unspecified, uncomplicated; D72.829 Elevated white blood cell count, unspecified; Z20.822 Contact with and (suspected) exposure to COVID-19; F41.9 Anxiety disorder, unspecified; F32.A Depression, unspecified; E66.9 Obesity, unspecified; K21.9 Gastro-esophageal reflux disease without esophagitis; Z91.14 Patient's other noncompliance with medication regimen
CPT/HCPCS: 36415; 70450; 70450-26; 71045; 71045-26; 80048; 80053; 80076; 80305-QW; 80307; 81001; 82550; 83550; 83605; 83735; 84100; 85025; 85045; 87040; 87086; 96361; 96365; 96375; 99285-25; 99291; A9270-GY; J1650; J1953; J2060; J2916; J3475; J3480; J3490; J7030; J7060; U0002